=== PATIENT | female | born 1950 | race Caucasian/White ===

== ENCOUNTER → 2018-01-18 | Outpatient (CLI) | payer MEDICARE, OTHER ==
--- NOTE | 2018-01-18 17:11 | RAD ---
Examination: Ultrasound left lower extremity venous duplex HISTORY: History of left leg swelling COMPARISON: None available Technique: Grayscale, color Doppler 2-D, spectral waveforms analysis of the left lower extremity venous system were performed. FINDINGS: The visualized common femoral vein, superficial femoral vein, popliteal vein demonstrate normal compression and augmentation of flow. The visualized calf veins are patent. IMPRESSION: No evidence of deep venous thrombosis left lower extremity venous system. Electronically signed by: Mustapha Glover MD (01/18/2018 5:07 PM) [id number]
== END | disposition home or self-care (01) ==
LOC: US 15:27
PROVIDERS: ATTEND Family Medicine
DX: R60.0 Localized edema (principal)
CPT/HCPCS: 93971

== ENCOUNTER 2020-06-03 16:18 | Emergency (ER) | payer MEDICARE, OTHER ==
[~2020-06-03] VITALS: Ht 160 cm; Wt 109.3 kg
--- NOTE | 2020-06-03 16:38 | RAD ---
EXAM: CT Head without IV contrast INDICATION: Reason: slurred speech, numbness / Spl. Instructions: / History: TECHNIQUE: Multi-detector row CT images were obtained of the head without the use of IV contrast. All CT scans performed at this facility utilize dose optimization techniques as appropriate to the exam, including the following: Automated exposure control and adjustment of the mA and/or KV according to patient size (this includes techniques or standardized protocols for targeted exams where dose is indication/reason for exam). COMPARISON: None FINDINGS: BRAIN PARENCHYMA: No evidence of acute intraparenchymal hemorrhage or infarct. No abnormal parenchymal density or mass. VENTRICLES & EXTRA-AXIAL SPACES: Ventricles are within normal limits. Basilar cisterns are patent. No pathologic extra-axial fluid collection or mass. ORBITS: Orbital contents are unremarkable. SINUSES: Visualized paranasal sinuses and mastoid air cells are clear. OSSEOUS & SOFT TISSUES: Calvarium and skull base are intact. IMPRESSION: No acute intracranial pathology. FOR INTERNAL CODING PURPOSES Critical result: Findings discussed with NEGRA TORREZ at 06/03/2020 4:35 PM. RESULT CODE: (C) Electronically signed by: Zeus Dewey MD (06/03/2020 4:35 PM) [id number]
--- NOTE | 2020-06-03 17:07 | RAD ---
Examination: PORTABLE CHEST 1V History: Reason: weakness, code stroke / Spl. Instructions: / History: Comparison/Correlation: None Findings: Portable frontal view of the chest was obtained. Heart size and pulmonary vasculature are normal. No infiltrate involving the left lung. At the right midlung region, there is subtle opacity which may represent atelectasis subjacent to the minor fissure. No dense consolidation is evident. No pleural effusion or pneumothorax. Bony structures are grossly unremarkable. Impression: Subtle opacity right midlung probably representing atelectasis. Interval follow-up 2 view chest x-ray exam to assess resolution recommended. Electronically signed by: Tay David MD (06/03/2020 5:04 PM) [facility]
[2020-06-03 17:10] LABS: BASO # 0.1 x10^3/uL (0.0-0.2); BASO % 1 % (0-3); EOS # 0.2 x10^3/uL (0.0-0.7); EOS % 2 % (0-3); HEMATOCRIT 37.7 % (36.0-47.0); HEMOGLOBIN 12.2 g/dL (12.0-15.5); LYMPH # 2.2 x10^3/uL (1.0-4.8); LYMPH % 19 % (24-48); MEAN CORPUSCULAR HEMOGLOBIN 28 pg (25-35); MEAN CORPUSCULAR HGB CONC 32 g/dL (31-37); MEAN CORPUSCULAR VOLUME 85 fL (79-100); MONO % 9 % (0-9); NEUT # 7.8 x10^3uL (1.8-7.7); NEUT % 69 % (31-73); PLATELET COUNT 260 x10^3/uL (140-400); RED BLOOD COUNT 4.43 x10^6/uL (3.50-5.40); RED CELL DISTRIBUTION WIDTH 15.9 % (11.5-14.5); WHITE BLOOD COUNT 11.4 x10^3/uL (4.0-11.0)
--- NOTE | 2020-06-03 17:11 | PHYS DOC ---
Past History Past Medical History: Diabetes, High Cholesterol, Hypertension, Sciatica Additional Past Medical Histor: SVT (NEGRA TORREZ DO) Past Surgical History: Hysterectomy, Knee Replacement, Oophorectomy Additional Past Surgical Histo: Lumbar spine (NEGRA TORREZ DO) Smoking: Quit Greater Than 1 Year Alcohol Use: Occasionally Drug Use: None (NEGRA TORREZ DO) General Adult EDM: Chief Complaint: NEURO SYMPTOMS/DEFICITS HPI: HPI: Patient is a 69-year-old female with a history of hypertension, diabetes, high cholesterol, presents to the ED per EMS as CODE STROKE with slurred speech which was noted 30 minutes prior to arrival while on the phone with her daughter. Last known well was 2100 last night when she had spoken to another family member. EMS reports symptoms have since resolved. Patient states that she feels well without any pain. Patient has a history of right upper and lower extremity weakness and spasms that started after she had a back surgery 1 year ago. Denies any chest pain, shortness of breath, abdominal pain, or dizziness. (NEGRA TORREZ DO) Review of Systems: Review of Systems: Constitutional: Denies fever or chills Eyes: Denies redness or eye pain HENT: Denies nasal congestion or sore throat Respiratory: Denies cough or shortness of breath Cardiovascular: Denies chest pain or palpitations GI: Denies abdominal pain, nausea, or vomiting : Denies dysuria or hematuria Musculoskeletal: Denies back pain or joint pain Integument: Denies rash or skin lesions Neurologic: Reports slurred speech but has since resolved. Reports chronic right arm and leg spasms. Denies headache Complete systems were reviewed and found to be within normal limits, except as documented in this note. (NEGRA TORREZ DO) Allergies: Allergies: Allergies Coded Allergies Type Severity Reaction Last Updated Verified Penicillins Allergy Unknown 06/03/20 Yes Sulfa (Sulfonamide Antibiotics) Allergy Unknown 06/03/20 Yes (NEGRA TORREZ DO) Physical Exam: PE: Constitutional: Well developed, well nourished, no acute distress, non-toxic appearance HENT: Normocephalic, atraumatic Eyes: PERRL, EOMI, conjunctiva normal, no discharge Neck: Normal range of motion, no tenderness, supple Lungs & Thorax: No respiratory distress, equal chest rise and fall Abdomen: Soft, no tenderness Skin: Warm, dry, no erythema, no rash Back: No tenderness, no CVA tenderness Extremities: No tenderness, ROM intact, no edema Neurologic: Alert and oriented X 3, mild expressive aphasia noted, normal motor function, normal sensory function, no focal deficits noted, Cranial nerves II through XII intact, no UE or LE drift, mild right lower extremity weakness +4/5 Psychologic: Affect normal, judgment normal (NEGRA TORREZ DO) Current Patient Data: Vital Signs: Vital Signs Date Time Temp Pulse Resp B/P (MAP) Pulse Ox O2 Delivery O2 Flow Rate FiO2 06/03/20 17:00 70 20 148/73 (98) 96 Room Air (NEGRA TORREZ DO) EKG: EKG: EKG @ 1628, sinus rhythm at 64 BP with PACs, QRS 90 ms, QTc 446, no ST elevation (NEGRA TORREZ DO) Radiology/Procedures: Radiology/Procedures: PROCEDURE: CT CODE STROKE HEAD WO EXAM: CT Head without IV contrast INDICATION: Reason: slurred speech, numbness / Spl. Instructions: / History: TECHNIQUE: Multi-detector row CT images were obtained of the head without the use of IV contrast. All CT scans performed at this facility utilize dose optimization techniques as appropriate to the exam, including the following: Automated exposure control and adjustment of the mA and/or KV according to patient size (this includes techniques or standardized protocols for targeted exams where dose is indication/reason for exam). COMPARISON: None FINDINGS: BRAIN PARENCHYMA: No evidence of acute intraparenchymal hemorrhage or infarct. No abnormal parenchymal density or mass. VENTRICLES & EXTRA-AXIAL SPACES: Ventricles are within normal limits. Basilar cisterns are patent. No pathologic extra-axial fluid collection or mass. ORBITS: Orbital contents are unremarkable. SINUSES: Visualized paranasal sinuses and mastoid air cells are clear. OSSEOUS & SOFT TISSUES: Calvarium and skull base are intact. IMPRESSION: No acute intracranial pathology. FOR INTERNAL CODING PURPOSES Critical result: Findings discussed with NEGRA TORREZ at 06/03/2020 4:35 PM. RESULT CODE: (C) Electronically signed by: Zeus Dewey MD (06/03/2020 4:35 PM) [id number] PROCEDURE: PORTABLE CHEST 1V History: Reason: weakness, code stroke / Spl. Instructions: / History: Comparison/Correlation: None Findings: Portable frontal view of the chest was obtained. Heart size and pulmonary vasculature are normal. No infiltrate involving the left lung. At the right midlung region, there is subtle opacity which may represent atelectasis subjacent to the minor fissure. No dense consolidation is evident. No pleural effusion or pneumothorax. Bony structures are grossly unremarkable. Impression: Subtle opacity right midlung probably representing atelectasis. Interval follow-up 2 view chest x-ray exam to assess resolution recommended. Electronically signed by: Tay David MD (06/03/2020 5:04 PM) [facility] (NEGRA TORREZ DO) Radiology/Procedures: T ANGIOGRAPHY HEAD AND NECK History:Reason: slurred speech, right arm weakness / Spl. Instructions: / History: Technique: After bolus of intravenous contrast, volumetric CT data acquisition was acquired of the head and neck. Multiplanar reconstruction images to include MIP and 3-D reconstruction images are submitted. Exposure: One or more of the following individualized dose reduction techniques were utilized for this examination: 1. Automated exposure control 2. Adjustment of the mA and/or kV according to patient size 3. Use of iterative reconstruction technique. Comparison: June 03, [address] Any determination of stenosis is based on NASCET criteria. Head CTA: ICA: Moderate bilateral siphon atheromatous plaque with moderate multifocal narrowing involving the cavernous and supraclinoid segments MCA: Mild narrowings of the right MCA branches. High-grade narrowing of the left M2 branch (series 7 image 258 and series 40715 image 51). CHAVEZ: Mild narrowing of the A2 and A3 segment branches. No occlusion. MACHINE BURRER: Moderate narrowing of the bilateral P2 segments. Basilar artery: No stenosis, occlusion or aneurysm. Distal vertebral arteries: Right distal vertebral artery atheromatous plaque with mild narrowing. Left maxillary sinus mucosal thickening with mucus retention cysts or polyps. CT angiogram neck: Aortic arch: Mild atheromatous plaque within the aortic arch and branch vessels. Common carotid arteries: No stenosis, occlusion or dissection. Internal carotid arteries: Moderate plaque within the bilateral carotid bifurcations, right greater than left. 60 percent narrowing of the right internal carotid artery origin. Less than 50 percent narrowing of the left internal carotid artery origin. External carotid arteries: Patent Vertebral arteries: Moderate narrowing of the left vertebral artery origin due to calcified plaque. The left vertebral artery is small throughout the course. Dominant right vertebral artery. Right middle lobe partial lobar atelectasis, incompletely evaluated. Coronary artery calcification. Soft tissues appear normal. Bones: No pathologic osseous lesions. Impression: 1. No arterial occlusion within the head and neck. 2. High-grade narrowing of left MCA M2 branch. 3. Additional multifocal intracranial moderate narrowings involving the internal carotid arteries and posterior cerebral arteries. 4. Moderate narrowing of the right proximal internal carotid artery. Additional atheromatous plaque within the neck. 5. Right middle lobe with partial lobar atelectasis incompletely imaged. (CHANTEL LONGORIA MD) Course & Med Decision Making: Course & Med Decision Making Pertinent Labs and Imaging studies reviewed. (See chart for details) Patient is a 69-year-old female who presents via EMS as CODE STROKE with slurred speech prior to arrival. Last know well at 2100 last night. Symptoms resolved on initial exam but during her stay in the ED she started slightly slurring her words. NIHSS 2 with right leg drift likely chronic. Initial Head CT was negative. Labs obtained and posted to chart. EKG stable. CXR with atelectasis. Given last known well and improvement of symptoms upon arrival patient not candidate for TPA. ASA given. CTA head/neck obtained and pending. Patient likely to require admission with neurology consultation. 1800- Sign out given to Dr. Longoria for further evaluation and final disposition. Discussed current findings and plan with patient, who acknowledges understanding and agreement. (NEGRA TORREZ DO) Course & Med Decision Making Discussed CTA head with radiology. High-grade stenosis of left M2. Recommends MRI, no acute stroke on CT. Discussed with patient transfer to [place], patient agreeable to plan. (CHANTEL LONGORIA MD) Dragon Disclaimer: Dragon Disclaimer: This electronic medical record was generated, in whole or in part, using a voice recognition dictation system. (NEGRA TORREZ DO) Departure Departure: Impression: Primary Impression: Slurred speech Referrals: CAMILA LINO DO (PCP) NIHSS - ED NIH Stroke Scale: NIH Stroke Scale Response (Comments) Value Level of Consciousness: 0 Alert/Responsive 0 LOC Questions: 0 Answers both correctly 0 LOC Commands: 0 Performs both tasks 0 Best Gaze: 0 Normal 0 Visual: 0 No visual loss 0 Facial Palsy: 0 Normal, symmetrical 0 Motor - Left Arm 0 No drift 0 Motor - Right Arm 0 No drift 0 Motor - Left Leg 0 No drift 0 Motor: Right Leg 1 Drift but can hold 1 Limb Ataxia: 0 Absent 0 Sensory: 0 No loss 0 Best Language: 1 Mild to mod aphasia 1 Dysathria: 0 Normal 0 Extinction and Inattention: 0 Normal 0 Total 2 TORREZNEGRA DO Jun 03, 2020 17:11 CHANTEL LONGORIA MD Jun 03, 2020 19:16
[2020-06-03 17:18] LABS: CALCIUM 10.1 mg/dL (8.5-10.1); CREATININE 1.2 mg/dL (0.6-1.0); GFR 44.4; POTASSIUM 4.1 mmol/L (3.5-5.1)
[2020-06-03 17:24] LABS: ALBUMIN 3.6 g/dL (3.4-5.0); ALBUMIN/GLOBULIN RATIO 0.8 (1.0-1.7); MAGNESIUM 2.1 mg/dL (1.8-2.4); TOTAL BILIRUBIN 0.3 mg/dL (0.2-1.0)
[2020-06-03] MEDS ORDERED: ASPIRIN 325 MG TABLET PO ONE (17:45)
[2020-06-03] MEDS ORDERED: IOHEXOL 350 MG/ML 100 ML VIAL. IV ONE (17:45)
--- NOTE | 2020-06-03 17:52 | EKG ---
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
--- NOTE | 2020-06-03 18:50 | RAD ---
CT ANGIOGRAPHY HEAD AND NECK History:Reason: slurred speech, right arm weakness / Spl. Instructions: / History: Technique: After bolus of intravenous contrast, volumetric CT data acquisition was acquired of the head and neck. Multiplanar reconstruction images to include MIP and 3-D reconstruction images are submitted. Exposure: One or more of the following individualized dose reduction techniques were utilized for this examination: 1. Automated exposure control 2. Adjustment of the mA and/or kV according to patient size 3. Use of iterative reconstruction technique. Comparison: June 03, [address] Any determination of stenosis is based on NASCET criteria. Head CTA: ICA: Moderate bilateral siphon atheromatous plaque with moderate multifocal narrowing involving the cavernous and supraclinoid segments MCA: Mild narrowings of the right MCA branches. High-grade narrowing of the left M2 branch (series 7 image 258 and series 62550 image 51). CHAVEZ: Mild narrowing of the A2 and A3 segment branches. No occlusion. FENCE MAKING MACHINE OPERATOR: Moderate narrowing of the bilateral P2 segments. Basilar artery: No stenosis, occlusion or aneurysm. Distal vertebral arteries: Right distal vertebral artery atheromatous plaque with mild narrowing. Left maxillary sinus mucosal thickening with mucus retention cysts or polyps. CT angiogram neck: Aortic arch: Mild atheromatous plaque within the aortic arch and branch vessels. Common carotid arteries: No stenosis, occlusion or dissection. Internal carotid arteries: Moderate plaque within the bilateral carotid bifurcations, right greater than left. 60 percent narrowing of the right internal carotid artery origin. Less than 50 percent narrowing of the left internal carotid artery origin. External carotid arteries: Patent Vertebral arteries: Moderate narrowing of the left vertebral artery origin due to calcified plaque. The left vertebral artery is small throughout the course. Dominant right vertebral artery. Right middle lobe partial lobar atelectasis, incompletely evaluated. Coronary artery calcification. Soft tissues appear normal. Bones: No pathologic osseous lesions. Impression: 1. No arterial occlusion within the head and neck. 2. High-grade narrowing of left MCA M2 branch. 3. Additional multifocal intracranial moderate narrowings involving the internal carotid arteries and posterior cerebral arteries. 4. Moderate narrowing of the right proximal internal carotid artery. Additional atheromatous plaque within the neck. 5. Right middle lobe with partial lobar atelectasis incompletely imaged. FOR INTERNAL CODING PURPOSES Critical result: Findings discussed with Dr. Sepulveda at 06/03/2020 6:47 PM. RESULT CODE: (C) Electronically signed by: Jaycob Mccarthy DO (06/03/2020 6:47 PM) [facility]
[2020-06-03 21:07] VITALS: BP 110/47
== END 2020-06-03 21:35 | disposition short-term general hospital (02) ==
LOC: ER 16:18
DX: R47.81 Slurred speech (principal); M62.831 Muscle spasm of calf; E11.9 Type 2 diabetes mellitus without complications; E78.00 Pure hypercholesterolemia, unspecified; I10 Essential (primary) hypertension; Z87.891 Personal history of nicotine dependence; Z88.0 Allergy status to penicillin; Z88.2 Allergy status to sulfonamides
CPT/HCPCS: 36415; 70450; 70496; 70498; 71045; 80053; 82550; 82947; 83735; 84484; 85025; 85610; 85730; 93005; 99285; Q9967

== ENCOUNTER 2021-02-23 10:53 | Emergency (ER) | payer MEDICARE, OTHER ==
[~2021-02-23] VITALS: Ht 160 cm; Wt 97.2 kg
--- NOTE | 2021-02-23 11:16 | PHYS DOC ---
Past History Past Medical History: Diabetes, High Cholesterol, Hypertension, Sciatica Additional Past Medical Histor: SVT Past Surgical History: Hysterectomy, Knee Replacement, Oophorectomy Additional Past Surgical Histo: Lumbar spine Smoking: Quit Greater Than 1 Year Alcohol Use: Occasionally Drug Use: None General Adult EDM: Chief Complaint: NEURO SYMPTOMS/DEFICITS HPI: HPI: 70-year-old female presents via EMS from home for altered mental status and decreased LOC. History primarily comes from EMS. They tell me that the patient's family has noticed she has been more sleepy and less able to be awake and aware since yesterday. Today seems much worse. She is not really answering the questions. When you ask the patient why she is here she does not know. She is not able to fully answer questions. She says, nope, yes, um. She did not tell me her full name when I asked her. Patient has a history of CVA with right-sided deficits. She is on multiple medications for blood pressure, cholesterol, and Plavix. She denies pain. Review of Systems: Review of Systems: Constitutional: Denies fever or chills Eyes: Denies change in visual acuity HENT: Denies nasal congestion or sore throat Respiratory: Denies cough or shortness of breath Cardiovascular: Denies chest pain or edema GI: Denies abdominal pain, nausea, vomiting, bloody stools or diarrhea : Denies dysuria Musculoskeletal: Denies back pain or joint pain Integument: Denies rash Neurologic: Altered mental status, decreased LOC Endocrine: Denies polyuria or polydipsia Lymphatic: Denies swollen glands Psychiatric: Denies depression or anxiety Allergies: Allergies: Allergies Coded Allergies Type Severity Reaction Last Updated Verified Penicillins Allergy Unknown 06/03/20 Yes Sulfa (Sulfonamide Antibiotics) Allergy Unknown 06/03/20 Yes Physical Exam: PE: Constitutional: Well developed, well nourished, no acute distress, morbidly obese. [] HENT: Normocephalic, atraumatic, bilateral external ears normal, oropharynx moist, no oral exudates, nose normal. [] Eyes: PERRLA, EOMI, conjunctiva normal, no discharge. [] Neck: Normal range of motion, no tenderness, supple, no stridor. [] Cardiovascular: Heart rate 54, regular rhythm, no murmur [] Lungs & Thorax: Bilateral breath sounds clear to auscultation [] Abdomen: Bowel sounds normal, soft, no tenderness, no masses, no pulsatile masses. [] Skin: Warm, dry, no erythema, no rash. [] Back: No tenderness, no CVA tenderness. [] Extremities: No tenderness, no cyanosis, no clubbing, ROM intact, no edema. [] Neurologic: Alert, opens eyes to commands. Expressive aphasia. Falls asleep quickly complicating the rest of the exam. [] Psychologic: Affect normal, judgement normal, mood normal. [] EKG: EKG: Sinus rhythm, rate 54, normal axis, no ST elevation or depression. [] Radiology/Procedures: Radiology/Procedures: [] Impressions: CT head without contrast dated 02/23/2021 11:44 AM Comparison: 06/03/2020 CLINICAL INDICATION: Altered mental status TECHNIQUE: Contiguous axial imaging of the head was performed from skull base to vertex. One or more of the following individualized dose reduction techniques were utilized for this examination: 1. Automated exposure control 2. Adjustment of the mA and/or kV according to patient size 3. Use of iterative reconstruction technique. FINDINGS: Ventricles and sulci are mildly prominent for age. No midline shift or mass effect. There is focal encephalomalacia in the left temporal parietal region consistent with remote cortical infarct, new from prior study. Mild patchy low density in the deep/subcortical periventricular white matter. No hemorrhage or extra-axial collection. Posterior fossa and brainstem unremarkable. Visualized paranasal sinuses and mastoid air cells are clear. No apparent calvarial abnormality. IMPRESSION: 1. No evidence of acute intracranial hemorrhage or mass. 2. Mild to moderate chronic small vessel ischemic changes and atrophy. There is a remote cortical infarct of the left temporal parietal region. Electronically signed by: Navin Hebert MD (02/23/2021 11:47 AM) [id number] DICTATED AND SIGNED BY: NAVIN HEBERT MD DATE: 02/23/21 1144 CC: ELLE DE JESUS DO; DELLA JARRETT MD ~MTH0 0 XR CHEST 1V History: Reason: AMS / Spl. Instructions: / History: Comparison: June 03, 2020 Findings: Low lung volumes with linear bibasilar opacities. No pleural effusion. No pneumothorax. Unchanged heart size. Impression: 1. Low lung volumes with linear bibasilar opacities, most likely atelectasis. Electronically signed by: Jaycob Mccarthy DO (02/23/2021 12:00 PM) [id number] DICTATED AND SIGNED BY: JAYCOB MCCARTHY DO DATE: 02/23/21 1200 CC: ELLE DE JESUS DO; DELLA JARRETT MD ~MTH0 0 Heart Score: C/O Chest Pain: N/A Risk Factors: Risk Factors: DM, Current or recent (<one month) smoker, HTN, HLP, family history of CAD, obesity. Risk Scores: Score 0 - 3: 2.5% MACE over next 6 weeks - Discharge Home Score 4 - 6: 20.3% MACE over next 6 weeks - Admit for Clinical Observation Score 7 - 10: 72.7% MACE over next 6 weeks - Early Invasive Strategies Course & Med Decision Making: Course & Med Decision Making Pertinent Labs and Imaging studies reviewed. (See chart for details) The patient is able to open her eyes to commands, but only gives 1 word answers to my questions. Her head CT is negative for acute findings. CTA of the head and neck shows high-grade narrowing. See official read for more details. Ayleen cam's urinalysis is negative for infection. Her labs are essentially unremarkable. Her glucose is normal. Her chest x-ray is negative for acute findings. Her urine drug screen is negative. The patient continues to be very sleepy and give short answers. I have discussed with family and they would prefer she be transferred to for admission. I believe this is reasonable. I spoke with the transfer center and her transfer is pending. Dr. Delgado at has accepted the patient for transfer and admission. She will go by ambulance. [] Dragon Disclaimer: Dragbatsheva Disclaimer: This electronic medical record was generated, in whole or in part, using a voice recognition dictation system. Departure Departure: Impression: Primary Impression: Altered mental status Qualified Codes: R41.0 - Disorientation, unspecified Disposition: 02 SHORT TERM [facility]OSPITAL Condition: GUARDED Referrals: DELLA JARRETT MD (PCP) ELLE DE JESUS DO Feb 23, 2021 11:16
[2021-02-23] MEDS ORDERED: IOHEXOL 350 MG/ML 100 ML VIAL. IV ONE (11:45)
--- NOTE | 2021-02-23 11:49 | RAD ---
CT head without contrast dated 02/23/2021 11:44 AM Comparison: 06/03/2020 CLINICAL INDICATION: Altered mental status TECHNIQUE: Contiguous axial imaging of the head was performed from skull base to vertex. One or more of the following individualized dose reduction techniques were utilized for this examinat ion: 1. Automated exposure control 2. Adjustment of the mA and/or kV according to patient size 3. Use of iterative reconstruction technique. FINDINGS: Ventricles and sulci are mildly prominent for age. No midline shift or mass effect. There is focal en cephalomalacia in the left temporal parietal region consistent with remote cortical infarct, new from prior study. Mild patchy low density in the deep/subcortical periventricular white matter. No hemorr galo or extra-axial collection. Posterior fossa and brainstem unremarkable. Visualized paranasal sinuses and mastoid air cells are clear. No apparent calvarial abnormality. IMPRESSION: 1. No evidence of acute intracranial hemorrhage or mass. 2. Mild to moderate chronic small vessel ischemic changes and atrophy. There is a remote cortical inf arct of the left temporal parietal region. Electronically signed by: Navin Hebert MD (02/23/2021 11:47 AM) [id number]
--- NOTE | 2021-02-23 12:03 | RAD ---
XR CHEST 1V History: Reason: AMS / Spl. Instructions: / History: Comparison: June 03, 2020 Findings: Low lung volumes with linear bibasilar opacities. No pleural effusion. No pneumothorax. Unchanged hea rt size. Impression: 1. Low lung volumes with linear bibasilar opacities, most likely atelectasis. Electronically signed by: Jaycob Mccarthy DO (02/23/2021 12:00 PM) [id number]
[2021-02-23 12:42] LABS: BASO # 0.1 x10^3/uL (0.0-0.2); BASO % 1 % (0-3); EOS # 0.1 x10^3/uL (0.0-0.7); EOS % 1 % (0-3); HEMATOCRIT 32.4 % (36.0-47.0); HEMOGLOBIN 10.4 g/dL (12.0-15.5); LYMPH # 1.2 x10^3/uL (1.0-4.8); LYMPH % 11 % (24-48); MEAN CORPUSCULAR HEMOGLOBIN 26 pg (25-35); MEAN CORPUSCULAR HGB CONC 32 g/dL (31-37); MEAN CORPUSCULAR VOLUME 81 fL (79-100); MONO # 0.6 x10^3/uL (0.0-1.1); MONO % 6 % (0-9); NEUT # 9.4 x10^3uL (1.8-7.7); NEUT % 82 % (31-73); PLATELET COUNT 214 x10^3/uL (140-400); RED BLOOD COUNT 4.03 x10^6/uL (3.50-5.40); RED CELL DISTRIBUTION WIDTH 18.1 % (11.5-14.5); WHITE BLOOD COUNT 11.4 x10^3/uL (4.0-11.0)
[2021-02-23 12:53] LABS: CALCIUM 9.7 mg/dL (8.5-10.1); CREATININE 1.5 mg/dL (0.6-1.0); GFR 34.2; POTASSIUM 4.3 mmol/L (3.5-5.1)
[2021-02-23 12:59] LABS: ALBUMIN 3.6 g/dL (3.4-5.0); ALBUMIN/GLOBULIN RATIO 0.9 (1.0-1.7); TOTAL BILIRUBIN 0.5 mg/dL (0.2-1.0); TOTAL PROTEIN 7.6 g/dL (6.4-8.2)
--- NOTE | 2021-02-23 13:20 | RAD ---
CTA HEAD AND NECK W/WO CONTRAST History:Reason: AMS / Spl. Instructions: / History: Technique: After bolus of intravenous contrast, volumetric CT data acquisition was acquired of the he ad and neck. Multiplanar reconstruction images to include MIP and 3-D reconstruction images are submi tted. Exposure: One or more of the following individualized dose reduction techniques were utilized for thi s examination: 1. Automated exposure control 2. Adjustment of the mA and/or kV according to patient size 3. Use of iterative reconstruction technique. Comparison: None Any determination of stenosis is based on NASCET criteria. Head CTA: ICA: Carotid siphon atheromatous plaque, right greater than left. Severe long segment narrowing of th e right paraclinoid and supraclinoid internal carotid artery. Right periophthalmic infundibulum. Meeta re narrowing of the left paraclinoid/supraclinoid segment. MCA: Severe focal narrowing of the left distal M1 segment (series 7 image 268). No occlusion. Additio nal severe narrowing of the left M2 branch (image 265). CHAVEZ: Multifocal mild to moderate narrowing of the bilateral anterior cerebral arteries. No occlusion. ARMED SECURITY OFFICER: Moderate focal narrowing of the right P2 segment (series 7 image 266). Basilar artery: No stenosis, occlusion or aneurysm. Irregularity of the basilar artery likely due to atheromatous disease. Distal vertebral arteries: Patent artifact from dental amalgam degrades evaluation of the posterior f johnathan and evaluation of the distal intracranial vertebral arteries. No definite occlusion. Moderate na rrowing of the right distal intracranial vertebral artery. Diminutive size of the left vertebral reddy ry. Patent superior sagittal, straight, transverse and sigmoid venous sinuses. Chronic left frontoparieta l infarct. CT angiogram neck: Aortic arch: Moderate femoral spike within the aortic arch. Common carotid arteries: No stenosis, occlusion or dissection. Internal carotid arteries: Moderate atheromatous plaque within the carotid bifurcation, right greater than left. Focal narrowing of the right proximal internal carotid artery (series 7 image 501) approx imately 65 percent stenosis. Less than 50 percent narrowing of the left proximal internal carotid art charly. External carotid arteries: Patent Vertebral arteries: Mild narrowing of the left vertebral artery origin due to calcified plaque. Domin ant right vertebral artery within the neck. Imaged lung apices are unremarkable. Soft tissues appear normal. Bones: No pathologic osseous lesions. Impression: CT angiogram head: 1. No intracranial arterial occlusion. 2. High-grade narrowing of the bilateral paraclinoid internal carotid arteries. 3. Severe focal narrowing of the left distal M1 segment and M2 branch. 4. Additional intracranial narrowings, as described. CT angiogram neck: 1. 65 percent narrowing of the right proximal internal carotid artery. 2. Less than 50 percent narrowing of the left proximal internal carotid artery. 3. Moderate atheromatous plaque. Electronically signed by: Jaycob Mccarthy DO (02/23/2021 1:18 PM) [id number]
[2021-02-23 14:08] LABS: BARBITURATES NEG (NEG); BENZODIAZEPINES NEG (NEG); CANNABINOIDS NEG (NEG); COCAINE NEG (NEG); METHADONE NEG (NEG); OPIATES NEG (NEG); PHENCYCLIDINE NEG (NEG)
[2021-02-23 14:14] LABS: BILIRUBIN,URINE NEG (NEG); CLARITY,URINE CLEAR; COLOR,URINE YELLOW; GLUCOSE,URINE NEG (NEG); UROBILINOGEN,URINE 0.2 mg/dL (0.2 mg/dL)
[2021-02-23 14:15] LABS: NITRITE,URINE NEG (NEG)
[2021-02-23 14:17] LABS: BACTERIA,URINE 0 /HPF (0-FEW); RBC,URINE OCC /HPF (0-2); SQUAMOUS EPITHELIAL CELL,UR OCC /LPF
[2021-02-23 14:25] LABS: AMPHETAMINE/METHAMPHETAMINE NEG (NEG)
[2021-02-23 16:57] VITALS: BP 192/73
--- NOTE | 2021-02-24 06:27 | EKG ---
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
== END 2021-02-23 17:12 | disposition short-term general hospital (02) ==
LOC: ER 10:53
DX: R41.82 Altered mental status, unspecified (principal); R55 Syncope and collapse; E11.9 Type 2 diabetes mellitus without complications; E78.00 Pure hypercholesterolemia, unspecified; I10 Essential (primary) hypertension; Z87.891 Personal history of nicotine dependence; Z88.0 Allergy status to penicillin; Z88.2 Allergy status to sulfonamides
CPT/HCPCS: 36415; 51702; 70450; 70496; 70498; 71045; 80053; 80307; 81001; 84484; 85025; 93005; 99285; Q9967

== ENCOUNTER 2021-03-04 06:23 | Inpatient (IN) | payer MEDICARE, OTHER ==
[~2021-03-04] VITALS: Ht 160 cm; Wt 95.6 kg
--- NOTE | 2021-03-04 06:54 | PHYS DOC ---
Past History Past Medical History: Diabetes, High Cholesterol, Hypertension, Sciatica Additional Past Medical Histor: SVT Past Surgical History: Hysterectomy, Knee Replacement, Oophorectomy Additional Past Surgical Histo: Lumbar spine Smoking: Quit Greater Than 1 Year Alcohol Use: None Drug Use: None Adult General Chief Complaint Chief Complaint: NAUSEA/VOMITING/[facility] HPI Patient is a 70-year-old female with a past medical history of CVA who presents to the emergency room after having an episode of vomiting at home. According to EMS they were called because she vomited and the family was concerned that maybe she was having a stroke. Patient does have chronic right-sided deficits. She is unable to provide any history at this time. Unknown last well-known time. No further history is available. Review of Systems Review of Systems Complete ROS is negative unless otherwise documented in HPI Allergies Allergies Allergies Coded Allergies Type Severity Reaction Last Updated Verified Penicillins Allergy Unknown 06/03/20 Yes Sulfa (Sulfonamide Antibiotics) Allergy Unknown 06/03/20 Yes Physical Exam Physical Exam General: Sleeping, NAD. Well Nourished, well hydrated. Cooperative HEENT: Atraumatic, EOMI, PERRL, airway patent, moist oral mucosa Neck: Supple, trachea midline Respiratory: CTA bilaterally, normal effort, no wheezing/crackles CV: RRR, no murmur, cap refill <2 GI: Soft, nondistended, nontender, no masses MSK: No obvious deformities Skin: Warm, dry, intact Neuro: Aphasia, right-sided weakness, moving left arm and leg without difficulty, does not follow commands, unable to assess cranial nerves EKG EKG Sinus rhythm, heart rate 64, QTc 452, ST depression in leads I, 2, aVL, V4 through V6. No ST elevation Radiology/Procedures Radiology/Procedures [] Heart Score C/O Chest Pain: N/A Risk Factors: Risk Factors: DM, Current or recent (<one month) smoker, HTN, HLP, family history of CAD, obesity. Risk Scores: Risk Factors: DM, Current or recent (<one month) smoker, HTN, HLP, family history of CAD, obesity. Course & Med Decision Making Course & Med Decision Making Pertinent Labs and Imaging studies reviewed. (See chart for details) Patient is a 70-year-old female with a history of CVA who presents to the [facility] with altered mental status. On exam, patient has chronic right-sided deficits, appears lethargic and confused. At this time it is unclear what is causing the patient's altered mental status, however they do not appear to be at their baseline. Differential includes infection, electrolyte imbalance, ACS, stroke, intracranial bleed, polypharmacy, dehydration, dementia, renal failure. Patient does not have hypo-or hyperthermia. No history was provided to suggest seizure with postictal state. Glucose is normal upon arrival. At arrival, patient is protecting their airway and does not need to be intubated. There are not any signs of trauma. To evaluate the patient's altered mental status, CBC, CMP, UA, troponin, EKG, CT head will be ordered. Patient does appear to be dehydrated. She remains altered. Will admit to the hospital for observation. Dragon Disclaimer Dragon Disclaimer This electronic medical record was generated, in whole or in part, using a voice recognition dictation system. Departure Departure: Impression: Primary Impression: Altered mental status Additional Impression: Dehydration Disposition: ADMITTED INPATIENT Condition: STABLE Referrals: DELLA JARRETT MD (PCP) Problem Qualifiers TI DUMONT MD Mar 04, 2021 06:54
[2021-03-04 07:02] LABS: CALCIUM 9.2 mg/dL (8.5-10.1); CREATININE 1.4 mg/dL (0.6-1.0); GFR 37.1; POTASSIUM 4.2 mmol/L (3.5-5.1)
--- NOTE | 2021-03-04 07:02 | EKG ---
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
[2021-03-04 07:14] LABS: ALBUMIN 3.6 g/dL (3.4-5.0); ALBUMIN/GLOBULIN RATIO 0.9 (1.0-1.7); TOTAL BILIRUBIN 0.5 mg/dL (0.2-1.0); TOTAL PROTEIN 7.5 g/dL (6.4-8.2)
[2021-03-04 07:18] LABS: BASO # 0.1 x10^3/uL (0.0-0.2); BASO % 1 % (0-3); EOS # 0.1 x10^3/uL (0.0-0.7); EOS % 1 % (0-3); HEMATOCRIT 32.9 % (36.0-47.0); HEMOGLOBIN 10.7 g/dL (12.0-15.5); LYMPH # 1.5 x10^3/uL (1.0-4.8); LYMPH % 12 % (24-48); MEAN CORPUSCULAR HEMOGLOBIN 26 pg (25-35); MEAN CORPUSCULAR HGB CONC 33 g/dL (31-37); MEAN CORPUSCULAR VOLUME 80 fL (79-100); MONO # 0.7 x10^3/uL (0.0-1.1); MONO % 6 % (0-9); NEUT % 81 % (31-73); PLATELET COUNT 263 x10^3/uL (140-400); RED BLOOD COUNT 4.12 x10^6/uL (3.50-5.40); RED CELL DISTRIBUTION WIDTH 17.9 % (11.5-14.5); WHITE BLOOD COUNT 12.4 x10^3/uL (4.0-11.0)
--- NOTE | 2021-03-04 07:44 | RAD ---
CT HEAD/BRAIN WO History: Altered mental status, vomiting. Comparison: CT head CTA 02/23/2021. Technique: Noncontrast CT imaging was performed of the head. Findings: No intracranial hemorrhage. No mass effect. No hydrocephalus. No acute territorial infarction. Redem onstrated left frontoparietal encephalomalacia. Imaged orbits are unremarkable. Imaged paranasal sinuses and mastoid air cells are clear. No acute ca lvarial fracture. Impression: 1. No acute intracranial abnormality. 2. Left frontoparietal encephalomalacia. ----- Exposure: One or more of the following individualized dose reduction techniques were utilized for thi s examination: 1. Automated exposure control 2. Adjustment of the mA and/or kV according to patient size 3. Use of iterative reconstruction technique. Electronically signed by: Dae Saab MD (03/04/2021 7:42 AM) [facility]
[2021-03-04] MEDS ORDERED: IV NORMAL SALINE 1,000ML 1,000 ML IV ONE (07:45)
[2021-03-04 07:50] LABS: BACTERIA,URINE 0 /HPF (0-FEW); BILIRUBIN,URINE NEG (NEG); CLARITY,URINE CLEAR; COLOR,URINE STRAW; GLUCOSE,URINE NEG (NEG); NITRITE,URINE NEG (NEG); RBC,URINE 0 /HPF (0-2); UROBILINOGEN,URINE 0.2 mg/dL (0.2 mg/dL); WBC,URINE 0 /HPF (0-4)
--- NOTE | 2021-03-04 07:57 | RAD ---
CT ABDOMEN+PELVIS WO History: Altered mental status, vomiting. Comparison: 10/04/2020 Technique: CT of the abdomen and pelvis without contrast. Findings: Lower chest: Mitral valve annular calcification. Coronary artery calcification. No pleural or pericar dial effusion. Minimal basilar atelectasis. General abdomen: No ascites. No free air. Liver : Normal in size and attenuation. No masses seen. Gallbladder/Biliary Tree: A few tiny stones in the gallbladder. No intrahepatic or extrahepatic bilia ry ductal dilatation. Pancreas: Normal. Spleen: Normal in size and attenuation. Adrenal glands: Circumscribed 4.5 cm x 3.3 cm left adrenal mass with a few internal calcifications ap pears not significantly changed. Kidneys: No hydronephrosis or hydroureter. Mildly prominent left extrarenal pelvis. Gastrointestinal: Small hiatal hernia. Unremarkable small bowel. Mild descending and sigmoid divertic ulosis. No evidence of diverticulitis. Lymph nodes: No lymphadenopathy. Vessels: Aorta iliac calcification without aneurysm. Pelvic Organs: Status post hysterectomy. No pelvic masses. The bladder is unremarkable. Soft tissues: Unremarkable. Bones: L4-L5 posterior spinal fixation. Impression: 1. No acute findings in the abdomen and pelvis. 2. Chronic findings including cholelithiasis, diverticulosis and small hiatal hernia. 3. Indeterminate circumscribed left adrenal mass measuring approximately 4.5 cm, not significantly c hanged from prior may represent adenoma, however dedicated renal MRI or CT could provide further river acterization. ------ Exposure: One or more of the following individualized dose reduction techniques were utilized for thi s examination: 1. Automated exposure control 2. Adjustment of the mA and/or kV according to patient size 3. Use of iterative reconstruction technique. Electronically signed by: Dae Saab MD (03/04/2021 7:54 AM) [facility]
[2021-03-04 09:07] LABS: BARBITURATES NEG (NEG); BENZODIAZEPINES NEG (NEG); CANNABINOIDS NEG (NEG); COCAINE NEG (NEG); METHADONE NEG (NEG); OPIATES NEG (NEG); PHENCYCLIDINE NEG (NEG)
[2021-03-04 09:11] LABS: BGAS PH 7.4 (7.35-7.45)
[2021-03-04 09:28] LABS: AMPHETAMINE/METHAMPHETAMINE NEG (NEG)
--- NOTE | 2021-03-04 10:53 | NUR ---
NURSING NOTE ADMIT PT ADMIT TO ROOM 107 [facility] FOR AMS DEHYDRATION. PT IS NOT ABLE TO STATE HER NAME OR SPEAK YES OR NO QUESTIONS. PT SON CALLED, PT SON STATES SHE IS NORMAL ALERT TO NAME AND DATE OF AT LEAST. BUT IS VERY SLOW TO RESPOND. STATES SHE HAS HAD A STROKE MAY 2020 AND ALSO ANOTHER STROKE 1 WEEK AGO. PT IS RIGHT SIDED PARALYSIS. PT SON STATES SHE IS ON INSULIN AND BLOOD THINNERS AND WILL CALL WHEN HE CAN WITH MED LIST. PT SON STATES SHE HAD NV SEP 2020. STATES DISCHARGE PLANNING TO RETURN HOME, PER PT SON, THEY HAVE PLENTY OF HELP AT HOME AND SHE DOES NOT WANT A ASSISTED. PT SON STATES PT IS FULL CODE BUT NO LIFE SUPPORT. PT REFUSES COVID VACCINE. PT TAKES MEDS WHOLE AND EATS MEALS WITH X1 ASSIST. PT HAS BRUISING ON BODY IN VARIOUS STAGING PT SON STATES IS FROM THE BLOOD THINNERS. JOSÉ MIGUEL RICARDO.
[2021-03-04 11:18] VITALS: BP 152/83
[2021-03-04] MEDS ORDERED: SIMV20TA18 PO (12:31)
[2021-03-04] MEDS ORDERED: PANT40TA6 PO (12:31)
[2021-03-04] MEDS ORDERED: BACL10TA PO ×2 (12:31→14:59)
[2021-03-04] MEDS ORDERED: ASPI-889 PO (12:31)
[2021-03-04] MEDS ORDERED: CLOP75TA PO (12:31)
[2021-03-04] MEDS ORDERED: LISI40TA6 PO (12:31)
[2021-03-04] MEDS ORDERED: METO-239 PO (12:31)
[2021-03-04] MEDS ORDERED: SERT-269 PO (12:31)
[2021-03-04] MEDS ORDERED: APIX2.5T PO (12:31)
[2021-03-04] MEDS ORDERED: INSU100V SQ (12:31)
[2021-03-04] MEDS ORDERED: TEMA7.5C PO (12:31)
[2021-03-04] MEDS ORDERED: INSU100I13 SQ (12:31)
[2021-03-04] MEDS ORDERED: TORS20TA2 PO (12:31)
[2021-03-04] MEDS ORDERED: NYST60PO TP (12:31)
[2021-03-04] MEDS ORDERED: MELA3TAB4 PO (12:31)
[2021-03-04 14:39] VITALS: BP 183/76
[2021-03-04] MEDS ORDERED: DOCU-109 PO (14:59)
[2021-03-04] MEDS ORDERED: VITAMIN D PO (14:59)
[2021-03-04] MEDS ORDERED: CETI10TA74 PO (14:59)
[2021-03-04] MEDS ORDERED: IV NORMAL SALINE 1,000ML 1,000 ML IV SCH (15:00)
--- NOTE | 2021-03-04 15:10 | NUR ---
NURSING NOTE CONSULT CONSULT PAGED [id number] DAVION VALDEZ Addendum: 03/04/21 at 1516 by DAVION VERMA RN RN DR BLANCO CALLED BACK, WILL SEE PT
[2021-03-04] MEDS ORDERED: BACLOFEN 10 MG TABLET PO PRN (15:15)
--- NOTE | 2021-03-04 15:17 | HP ---
ADMIT DATE: 03/04/2021 HISTORY OF PRESENT ILLNESS: The patient is a 70-year-old female patient, who was brought to the Emergency Room by Emergency Medical Service personnel with complaint of nausea and vomiting. According to the EMS, they were called because she vomited. The family was concerned that she may be having another stroke. She does have right-sided hemiplegia and also has aphasia. She was also somewhat slower to answer questions. The family decided to call EMS to bring her to the Emergency Room for further evaluation. There was no history of fall, no seizure disorder. She normally can feed herself, but otherwise she is dependent in 5/6 all activities of daily living. She was extensively investigated in the Emergency Room and has had lab work. Her white cell count was slightly elevated at 12,400. Her blood gasses were within normal range. Her chemistry showed slightly dehydrated with BUN of 48, creatinine 1.4. Urinalysis was unremarkable and her toxic screen was essentially negative. The patient was admitted with altered mental status and dehydration. We will start her on IV fluid. We will also consult the Neurologist. She did have a CT scan of the head, which showed no acute intracranial abnormalities. She has frontoparietal encephalomalacia. The CT scan of the abdomen and pelvis without contrast showed no acute finding in the abdomen and pelvis. Chronic findings including cholelithiasis, diverticulosis, small hiatal hernia. She also has indeterminate circumscribed left adrenal mass, measuring approximately 4.5 cm, not significantly changed from prior, may represent adenoma; however, dedicated renal MRI or CT scan provide further characterization. She was started on IV fluid and was admitted. We will also get the medication list from her son and get physical and occupational therapy as well as neurologist to see her. PAST MEDICAL HISTORY: Significant for type 2 diabetes mellitus, hypertension, hyperlipidemia, age-related macular degeneration, osteoarthritis. 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 PAST SURGICAL HISTORY: Significant for bilateral cataract extraction, tonsillectomy, total abdominal hysterectomy, bilateral salpingo-oophorectomy, bilateral total knee arthroplasty. She underwent esophagogastroduodenoscopy and colonoscopy and most recently, she had, had some surgery on her back in 03/2020 at [facility]. ALLERGIES: SHE IS ALLERGIC TO PENICILLIN AND SULFA DRUGS. MEDICATIONS: She is currently on the following medication: She is on baclofen 10 mg as needed, apixaban 2.5 mg twice a day, Plavix 75 mg once a day, simvastatin 20 mg at bedtime, metoprolol succinate 25 mg once a day, lisinopril 40 mg once a day, aspirin enteric coated 81 mg once a day, sertraline 100 mg once a day. She is on temazepam 7.5 mg at bedtime as needed, torsemide 20 mg twice a day and Protonix 40 mg once a day. She is on Humalog insulin 20 units before meals, nystatin powder applied topically twice a day and Lantus insulin 40 units at bedtime and melatonin 3 mg at bedtime. REVIEW OF SYSTEMS: As per history of present illness. PHYSICAL EXAMINATION: GENERAL: On arrival to the emergency room, she looked well and was clearly in no apparent respiratory distress. She was pale. No jaundice, cyanosis or thyromegaly. No jugular venous distention. No limb edema. VITAL SIGNS: Her heart rate was 72, blood pressure 143/59, temperature 97.8, respiratory rate was 19 and oxygen saturation was 91% on room air. HEAD, EYES, EARS, NOSE, AND THROAT: Normocephalic, atraumatic. NECK: Supple. HEART: Normal first and second heart sounds. No gallop, rub or murmur. CHEST: Clear to auscultation. No crepitation or rhonchi. ABDOMEN: Distended, soft, nontender. NEUROLOGIC: She was sleepy, but arousable. She opens eyes, tracks and responds appropriately. She does have right-sided hemiplegia. LABORATORY DATA: Showed white cell count 12,400, hemoglobin 11, hematocrit 33, MCV 80 and platelet count 263,000. Her chemistry showed a serum sodium 143, potassium 4.2, chloride 103, bicarbonate 27, anion gap of 13, BUN 48, creatinine 1.4. Estimated GFR was 37 mL per minute. Her glucose was 93, calcium was 9.2. Total bilirubin, AST, ALT normal. Alkaline phosphatase slightly elevated. Beta natriuretic peptide was 320. Total protein 7.5, albumin was 3.6. Her urinalysis was unremarkable and toxic screen was essentially negative. ASSESSMENT: This is a 70-year-old female patient, who was admitted with altered mental status and was found to be dehydrated. She apparently is known to have a left middle cerebral artery territory infarct. She has had other episodes of infarction around the same area. She is normally wheelchair bound. She requires assistance and 5/6 activities of daily living. She is able to feed herself. My plan is to continue with rehydration. I will hold her blood pressure medication and Lasix and continue with IV fluid. We will consult physical and occupational therapy as well as speech therapy and neurologist and decide the further management accordingly. SEVEN DR: Alea TID: [id number]
[2021-03-04] MEDS: IV NORMAL SALINE 1,000ML 1,000 ML IV SCH (15:27)
[2021-03-04] MEDS ORDERED: INSULIN GLARGINE SYRINGE. SQ PRN (15:30)
--- NOTE | 2021-03-04 15:35 | NUR ---
NURSING NOTE MEDICATIONS VERIFIED WITH TAMMI RICARDO RN.
[2021-03-04] MEDS: INSULIN LISPRO 300 UNITS/3 ML VIAL. SQ SCH (17:54)
--- NOTE | 2021-03-04 18:22 | NUR ---
Nursing Note Pt seen by Dr. Sutton. Pt restarted on some of her home meds and started on fluids. Pt son visited today. Pt resting in the bed.
[2021-03-04 19:50] VITALS: BP 138/48
[2021-03-04] MEDS ORDERED: INSULIN GLARGINE SYRINGE. SQ SCH (21:00)
[2021-03-04] MEDS ORDERED: BACLOFEN 20 MG TABLET PO SCH (21:00)
[2021-03-04] MEDS ORDERED: CHOLECALCIFEROL (VITAMIN D3) 1,000 UNIT TABLET PO SCH (21:00)
[2021-03-04] MEDS ORDERED: SIMVASTATIN 20 MG TABLET PO SCH (21:00)
[2021-03-04] MEDS ORDERED: MELATONIN 3 MG TABLET PO SCH (21:00)
[2021-03-04] MEDS: DOCUSATE SODIUM 100 MG CAPSULE PO SCH (22:17)
[2021-03-04] MEDS: APIXABAN 2.5 MG TABLET PO SCH (22:17)
[2021-03-04] MEDS: NYSTATIN TOPICAL POWDER 15GM BOTTLE. TP SCH (22:17)
[2021-03-04] MEDS ORDERED: OLANZapine 5 MG TABLET PO PRN (22:45)
[2021-03-04] MEDS ORDERED: OLANZapine IM 10 MG VIAL. IM PRN ×2 (22:45)
[2021-03-04] MEDS ORDERED: OLANZapine 2.5 MG TABLET PO PRN (22:45)
[2021-03-04 23:00] VITALS: BP 134/64
--- NOTE | 2021-03-05 00:01 | NUR ---
Patient was agitated and trying to get out of bed. Multiple attempts to re-direct were unsuccessful. Dr Sutton was notified and orders for Olanzapine PO and IM prn were given to be administered based on need and whether patient will accept to swallow or not. Orers were entered and confirmed and a dose was administered to calm patient down. Pastient is now laying in bed, breathing normally with eyes closed.
--- NOTE | 2021-03-05 02:50 | CONS ---
DATE OF CONSULTATION: 03/04/2021 NEURO CONSULTATION REFERRING PHYSICIAN: Dr. Sutton. REASON FOR CONSULTATION: Acute mental status, rule out stroke versus systemic infections. HISTORY OF PRESENT ILLNESS: This is a 70-year-old right-handed male, was admitted through Emergency Room after she presented with acute onset of nausea, vomiting. The patient has a history of stroke resulted in a dense right hemiparesis and aphasia due to left MCA infarct resulted in aphasia and difficulty to communicate. There has been no history of recent head injuries or fall. On arrival to the Emergency Room, the patient was found to be dehydrated and initial nonenhanced head CT scan revealed no evidence of acute intracranial process. Initial abdomen CT also revealed chronic cholelithiasis and diverticulosis with small hiatal hernia. Left adrenal mass were also noted. PAST MEDICAL HISTORY: Significant for diabetes mellitus type 2, hypertension, hyperlipidemia, osteoarthritis, macular degeneration and left middle cerebral artery infarct resulted in aphasia and dense right hemiparesis, GERD, depression. PAST SURGICAL HISTORY: Positive for bilateral cataract removal, tonsillectomy, abdominal hysterectomy, bilateral total knee replacement, status post lumbosacral spine surgery in 03/2020. SOCIAL HISTORY: Not obtainable. FAMILY HISTORY: Not obtainable. CURRENT MEDICATIONS: Includes Baclofen, Plavix, apixaban, simvastatin, metoprolol, lisinopril, aspirin, sertraline, Protonix and insulin. ALLERGIES: PENICILLIN AND SULFA DRUGS. PHYSICAL EXAMINATION: GENERAL: Obese female in no acute distress. She weighs 95.6 kilos. VITAL SIGNS: Blood pressure 183/76, respiratory rate 20, pulse is 70 and regular, oxygen saturation is 92% on 2 liters via nasal cannula and temperature 98.1. HEENT: Normocephalic and atraumatic, otherwise unremarkable. NECK: Supple. Negative for carotid bruit, lymphadenopathy or thyromegaly. LUNGS: Clear to A and P. CARDIOVASCULAR: Regular rhythm. Normal S1 and S2. ABDOMEN: Soft. Bowel sounds positive. EXTREMITIES: Negative for cyanosis or pitting edema. NEUROLOGIC: Mental status: The patient is awake, but aphasic. Follows 1-step commands. Further evaluation of her mental status is limited at this time. Motor examination: No focal muscle bulk wasting. The patient had dense right hemiparesis, including the right face, arm and leg. Sensory examination revealed diminished pinprick and light touch senses over the right upper and lower extremities. Deep tendon reflexes were symmetric and hypoactive with positive Babinski on the right side. Gait not tested. LABORATORY DATA: CBC revealed white blood cells of 12.4000, hemoglobin 10.7, hematocrit 32.9, platelet count 263,000. Chemistry reveals a sodium of 143, potassium 4.2, chloride 103, CO2 27, BUN 48, creatinine 1.4, glucose 193, calcium 9.2. Liver enzymes are normal. Alkaline phosphatase is elevated with normal troponin level and high NTP. Urinalysis negative for urinary tract infections. Urine drug screen is negative as well. IMPRESSION: 1. Acute encephalopathy etiology is uncertain 2. Right dense hemiparesis secondary to previous left middle cerebral artery infarct resulted in aphasia. 3. Multiple medical problems include hypertension, hyperlipidemia, diabetes mellitus and macular degeneration. RECOMMENDATIONS: 1. continue with current management 2. Physical therapy evaluation along with speech therapy as tolerated KATI/MYCHAL DR: KATI/ayesha TID: [id number] MTDD
[2021-03-05] MEDS: IV NORMAL SALINE 1,000ML 1,000 ML IV SCH ×2 (04:35→17:20)
[2021-03-05 07:04] VITALS: BP 108/51
[2021-03-05 07:16] LABS: HEMATOCRIT 30.6 % (36.0-47.0); HEMOGLOBIN 9.9 g/dL (12.0-15.5); RED BLOOD COUNT 3.77 x10^6/uL (3.50-5.40); RED CELL DISTRIBUTION WIDTH 17.8 % (11.5-14.5); WHITE BLOOD COUNT 12.7 x10^3/uL (4.0-11.0)
[2021-03-05 07:35] LABS: ALBUMIN 3.1 g/dL (3.4-5.0); ALBUMIN/GLOBULIN RATIO 0.8 (1.0-1.7); CALCIUM 9.2 mg/dL (8.5-10.1); CREATININE 1.2 mg/dL (0.6-1.0); GFR 44.3; POTASSIUM 3.7 mmol/L (3.5-5.1); TOTAL BILIRUBIN 0.5 mg/dL (0.2-1.0)
[2021-03-05] MEDS: INSULIN LISPRO 300 UNITS/3 ML VIAL. SQ SCH ×3 (08:00→17:00)
[2021-03-05] MEDS ORDERED: PANTOPRAZOLE 40 MG TABLET. PO SCH (09:00)
[2021-03-05] MEDS ORDERED: SERTRALINE 100 MG TABLET. PO SCH (09:00)
[2021-03-05] MEDS ORDERED: ASPIRIN ENTERIC COATED 81 MG TABLET.DR. PO SCH (09:00)
[2021-03-05] MEDS ORDERED: METOPROLOL SUCC 24HR ER 25 MG TAB.ER.24H. PO SCH (09:00)
[2021-03-05] MEDS ORDERED: CETIRIZINE HCL 10 MG TABLET PO SCH (09:00)
[2021-03-05] MEDS ORDERED: CLOPIDOGREL BISULFATE 75 MG TABLET PO SCH (09:00)
[2021-03-05 10:16] VITALS: BP 160/74
[2021-03-05 11:11] VITALS: BP 160/74
[2021-03-05] MEDS: APIXABAN 2.5 MG TABLET PO SCH (11:11)
[2021-03-05] MEDS: DOCUSATE SODIUM 100 MG CAPSULE PO SCH (11:11)
[2021-03-05] MEDS: NYSTATIN TOPICAL POWDER 15GM BOTTLE. TP SCH ×2 (11:12→14:09)
--- NOTE | 2021-03-05 16:34 | NUR ---
Patient Concern This nurse called at times listed below patient family in order to assure that family/caregiver is at home to received patient and no answer received, voicemail left. Nash Barreto (son) called this morning at apx 10am for plan of care update and time of discharge. This nurse voiced to patients son that I would call and notify prior to patient to be transferred back to home. Times: 1700, 1715, 1730, 1630 Addendum: 03/05/21 at 1655 by MITRA ESTRELLA RN [id number]:This nurse was able to reach Wyatt Barreto whom stated "I will text my family and see who replies then I will call you back to let you know who will be home and when".
--- NOTE | 2021-03-05 18:48 | NUR ---
Discharge Note Patient picked up per EMS after receiving call from Wyatt Barreto stating that he was able to get a hole of his brother who is there at the house. Patient send with discharge packet for family whom presume care for her in home. No acute concerns. All questions answered in full.
--- NOTE | 2021-03-05 22:24 | DS ---
DATE OF DISCHARGE: 03/05/2021 HOSPITAL COURSE: The patient is a 70-year-old female patient who was admitted with altered mental status and also was found to be dehydrated. She was started on IV fluid and was seen in consultation by the neurologist who basically felt that the patient's acute encephalopathy has uncertain etiology, although she seemed to be dehydrated. She continues to have dense right-sided hemiparesis secondary to previous left middle cerebral artery territory infarct with resultant aphasia and we did start her on IV fluid and her BUN and creatinine has improved. When I saw her today, she is definitely more awake, alert, continued to have aphasia and difficulty finding words. PHYSICAL EXAMINATION: GENERAL: When I examined her; however, she looked well, was slightly pale. No jaundice, no cyanosis, no lymphadenopathy, no thyromegaly, no jugular venous distention. No lower limb edema. VITAL SIGNS: Her heart rate was 64, blood pressure is 160/74, temperature was 97.6, respiratory rate 20, and oxygen saturation was 97%. HEAD, EYES, EARS, NOSE AND THROAT: Normocephalic, atraumatic. NECK: Supple. HEART: Showed normal first and second heart sounds, no gallop or murmur. CHEST: Clear to auscultation, no crepitation or rhonchi. ABDOMEN: Distended, soft, nontender. NEUROLOGIC: She is awake, alert. She has expressive aphasia and dense right-sided hemiplegia. Her intake was 1225, output was 1500. LABORATORY DATA: This morning showed a white cell count 12,700, hemoglobin 9.9, hematocrit 30.6, MCV 81 and platelet count 251,000. Her serum sodium was 149, potassium 3.7, chloride 112, bicarbonate 27, anion gap of 10, BUN 33, creatinine 1.2. Estimated GFR was 44 mL per minute. Her glucose was 73, calcium was 9.2. Total bilirubin, AST, ALT, alkaline phosphatase were normal. Total protein 7, albumin was 3.1. Urinalysis was unremarkable and toxic screen was negative. PLAN: The patient will be discharged back to home with private care on all her home medication. ABNER DR: Alea TID: [id number]
--- NOTE | 2021-03-05 23:34 | PN ---
PROGRESS NOTE SUBJECTIVE: The patient is aphasic and not able to communicate. OBJECTIVE: GENERAL: Well-developed, well-nourished female in no acute distress. VITAL SIGNS: Blood pressure 108/51, respiratory rate 18, pulse is 62 and regular, oxygen saturation is 95% on room air, temperature 97.2. HEENT: Normocephalic, atraumatic, otherwise unremarkable. NECK: Supple. Negative for carotid bruit, lymphadenopathy, or thyromegaly. LUNGS: Clear to A and P. CARDIOVASCULAR: Regular rhythm. Normal S1, S2. EXTREMITIES: Negative for cyanosis or clubbing. NEUROLOGIC: Mental Status: The patient is aphasic due to previous stroke. She is able to follow one-step commands. Cranial nerves reveal right central facial asymmetry due to previous stroke. Motor examination revealed a dense right hemiparesis. Sensory examination revealed a diminished pinprick and light touch senses over the right upper and lower extremities. Deep tendon reflexes are symmetric and hypoactive with absent Achilles responses. Babinski is positive on the right side. LABORATORY DATA: CBC revealed blood cells of 12.7 thousand, hemoglobin 9.9, hematocrit 30.6, platelet count 251,000. Chemistry revealed sodium of 149, potassium 3.7, chloride 112, CO2 27, BUN 33, creatinine 1.2, glucose is 113, and calcium 9.2. IMPRESSION: 1. Acute encephalopathy, of uncertain etiology, probably due to underlying dehydration and renal insufficiency. 2. Status post dense right hemiparesis with aphasia due to a previous left frontoparietal infarct in MCA distribution. RECOMMENDATIONS: Continue with current management and care initiated by Dr. Sutton along with speech and physical therapy as tolerated. KATI/LOUANN DR: KATI/ayesha TID: [id number]
== END 2021-03-05 18:00 | disposition home or self-care (01) | DRG 641 ==
LOC: ER 06:23 → 1 SOUTH 08:55
PROVIDERS: ADMIT Internal Medicine; ATTEND Internal Medicine
DX: E86.0 Dehydration (principal); G93.40 Encephalopathy, unspecified; I69.351 Hemiplegia and hemiparesis following cerebral infarction affecting right dominant side; E11.9 Type 2 diabetes mellitus without complications; E27.9 Disorder of adrenal gland, unspecified; E78.00 Pure hypercholesterolemia, unspecified; E78.5 Hyperlipidemia, unspecified; G93.89 Other specified disorders of brain; H35.30 Unspecified macular degeneration; I10 Essential (primary) hypertension; I69.320 Aphasia following cerebral infarction; K44.9 Diaphragmatic hernia without obstruction or gangrene; K57.90 Diverticulosis of intestine, part unspecified, without perforation or abscess without bleeding; K80.20 Calculus of gallbladder without cholecystitis without obstruction; N28.9 Disorder of kidney and ureter, unspecified; Z87.891 Personal history of nicotine dependence; Z90.710 Acquired absence of both cervix and uterus; Z96.653 Presence of artificial knee joint, bilateral; Z98.41 Cataract extraction status, right eye; Z98.42 Cataract extraction status, left eye; Z99.3 Dependence on wheelchair; F32.9 Major depressive disorder, single episode, unspecified; K21.9 Gastro-esophageal reflux disease without esophagitis; M19.90 Unspecified osteoarthritis, unspecified site; Z88.0 Allergy status to penicillin; Z88.2 Allergy status to sulfonamides
CPT/HCPCS: 36415; 70450; 74176; 80053; 80307; 81001; 82803; 82947; 83690; 83880; 84484; 85025; 85027; 93005; 96360; J1815; J3490; P9612; 99285-25; J7030

== ENCOUNTER 2021-03-13 15:42 | Inpatient (IN) | payer MEDICARE, OTHER ==
[~2021-03-13] VITALS: Ht 160 cm; Wt 97.0 kg
[~2021-03-13 15:42] MED LIST: APIX2.5T PO; ASPI-889 PO; BACL10TA PO; CETI10TA74 PO; CLOP75TA PO; DOCU-109 PO; INSU100I13 SQ; INSU100V SQ; LISI40TA6 PO; MELA3TAB4 PO; METO-239 PO; NYST60PO TP; PANT40TA6 PO; SERT-269 PO; SIMV20TA18 PO; TEMA7.5C PO; TORS20TA2 PO; VITAMIN D PO
--- NOTE | 2021-03-13 16:42 | PHYS DOC ---
Past History Past Medical History: Diabetes, High Cholesterol, Hypertension, Sciatica Additional Past Medical Histor: SVT (CHANTEL LONGORIA MD) Past Surgical History: Hysterectomy, Knee Replacement, Oophorectomy Additional Past Surgical Histo: Lumbar spine (CHANTEL LONGORIA MD) Smoking: Quit Greater Than 1 Year Alcohol Use: None Drug Use: None (CHANTEL LONGORIA MD) General Adult EDM: Chief Complaint: DEHYDRATION HPI: HPI: Patient is a 70-year-old female brought in by EMS. Patient's family called EMS because they felt she was dehydrated. Patient denies any complaints did not want to come to the hospital but family insisted. Family did not come to the hospital with patient so history is limited to EMS report as patient has a prior stroke and is only able to answer yes or no questions. Patient states she has no complaints and has no pain but does feel like she could be a little bit dehydrated. Responds yes that she has been eating and drinking normally. (CHANTEL LONGORIA MD) Review of Systems: Review of Systems: All other systems within normal limits except for as noted in the HPI (CHANTEL LONGORIA MD) Allergies: Allergies: Allergies Coded Allergies Type Severity Reaction Last Updated Verified Penicillins Allergy Unknown 03/13/21 Yes Sulfa (Sulfonamide Antibiotics) Allergy Unknown 03/13/21 Yes (CHANTEL LONGORIA MD) Physical Exam: PE: Constitutional: Well developed, well nourished, no acute distress, non-toxic appearance. [] HENT: Normocephalic, atraumatic, bilateral external ears normal, nose normal. [] Eyes: PERRLA, conjunctiva normal, no discharge. [] Neck: No rigidity, supple, no stridor. [] Cardiovascular: Regular rate and rhythm, brisk cap refill [] Lungs & Thorax: Non labored symmetric respirations, no tachypnea or respiratory distress [] Abdomen: Soft, nondistended. Skin: Warm, dry, no erythema, no rash. [] Back: Unremarkable Extremities: No deformities, range of motion grossly intact, no lower extremity edema [] Neurologic: Alert and oriented X 3, right-sided upper and lower extremity deficits, no slurred speech. Psychologic: Affect normal, judgement normal, mood normal. [] (CHANTEL LONGORIA MD) Current Patient Data: Vital Signs: Vital Signs Date Time Temp Pulse Resp B/P (MAP) Pulse Ox O2 Delivery O2 Flow Rate FiO2 03/13/21 16:33 62 13 164/58 (93) 97 Room Air 03/13/21 15:56 98.0 (CHANTEL LONGORIA MD) EKG: EKG: Irregular rhythm, normal axis, no isolation depression, heart rate 70 bpm [] (CHANTEL LONGORIA MD) Radiology/Procedures: Radiology/Procedures: [] (CHANTEL LONGORIA MD) Heart Score: C/O Chest Pain: N/A Risk Factors: Risk Factors: DM, Current or recent (<one month) smoker, HTN, HLP, family history of CAD, obesity. Risk Scores: Score 0 - 3: 2.5% MACE over next 6 weeks - Discharge Home Score 4 - 6: 20.3% MACE over next 6 weeks - Admit for Clinical Observation Score 7 - 10: 72.7% MACE over next 6 weeks - Early Invasive Strategies (CHANTEL LONGORIA MD) Course & Med Decision Making: Course & Med Decision Making Pending labs at shift change, getting 500 ml of NS (CHANTEL LONGORIA MD) Course & Med Decision Making Patient care handed off to me at checkout pending work-up. Patient with dementia and concern for safety at home plus an elevation in creatinine of 40% over the last measurement as well as not able to tolerate p.o. and findings of uncomplicated diverticulitis on CT. Patient started on antibiotics, IV fluid resuscitation and admitted to [facility] after discussing patient with Dr. Vela. (ART CRUZ MD) Dragon Disclaimer: Dragon Disclaimer: This electronic medical record was generated, in whole or in part, using a voice recognition dictation system. (CHANTEL LONGORIA MD) Departure Departure: Referrals: DELLA JARRETT MD (PCP) CHANTEL LONGORIA MD Mar 13, 2021 16:42 ART CRUZ MD Mar 13, 2021 20:03
[2021-03-13 17:35] LABS: BASO # 0.1 x10^3/uL (0.0-0.2); BASO % 1 % (0-3); EOS # 0.1 x10^3/uL (0.0-0.7); EOS % 1 % (0-3); HEMOGLOBIN 10.7 g/dL (12.0-15.5); LYMPH # 1.7 x10^3/uL (1.0-4.8); LYMPH % 11 % (24-48); MEAN CORPUSCULAR HEMOGLOBIN 26 pg (25-35); MEAN CORPUSCULAR HGB CONC 32 g/dL (31-37); MEAN CORPUSCULAR VOLUME 81 fL (79-100); MONO # 1.1 x10^3/uL (0.0-1.1); MONO % 7 % (0-9); NEUT # 12.7 x10^3uL (1.8-7.7); NEUT % 81 % (31-73); PLATELET COUNT 268 x10^3/uL (140-400); RED BLOOD COUNT 4.09 x10^6/uL (3.50-5.40); RED CELL DISTRIBUTION WIDTH 17.7 % (11.5-14.5); WHITE BLOOD COUNT 15.7 x10^3/uL (4.0-11.0)
[2021-03-13 17:42] LABS: CREATININE 1.6 mg/dL (0.6-1.0); GFR 31.8; POTASSIUM 4.3 mmol/L (3.5-5.1)
[2021-03-13] MEDS ORDERED: IV NORMAL SALINE 500ML 500 ML IV ONE (17:45)
[2021-03-13 17:54] LABS: ALBUMIN 3.5 g/dL (3.4-5.0); ALBUMIN/GLOBULIN RATIO 0.7 (1.0-1.7); TOTAL BILIRUBIN 0.9 mg/dL (0.2-1.0); TOTAL PROTEIN 8.5 g/dL (6.4-8.2)
[2021-03-13 17:55] LABS: MAGNESIUM 2.4 mg/dL (1.8-2.4)
[2021-03-13 18:19] LABS: % EOS 1 % (0-5); % LYMPHS 21 % (24-48); % MONOS 6 % (0-10); % SEGS 72 % (35-66); PLATELET CLUMP PRESENT; PLT ESTIMATE INCREASED (ADEQUATE)
[2021-03-13 18:20] LABS: MICROCYTOSIS SLIGHT; TOXIC GRANULATION MOD
--- NOTE | 2021-03-13 19:01 | RAD ---
AP chest. HISTORY: Abdominal pain AP view was taken of the chest. Lungs are clear. Heart is normal in size. There is no effusion. IMPRESSION: 1. No acute chest disease. Electronically signed by: Mega Engle MD (03/13/2021 6:58 PM) [facility]
--- NOTE | 2021-03-13 19:14 | RAD ---
Exam: CT of abdomen and pelvis without contrast INDICATION: Right-sided abdominal pain TECHNIQUE: Sequential axial images through the abdomen and pelvis obtained without IV contrast. Sagit srinivasan and coronal reformatted images were reconstructed from the axial data and reviewed. Exposure: One or more of the following in the visualized dose reduction techniques were utilized for this examination: 1. Automated exposure control 2. Adjustment of the MA and/or KV according to patient size 3. Use of iterative of reconstructive technique Comparisons: 03/04/2020 FINDINGS: Heart size is normal. No pericardial effusion. Visualized lung bases are clear. Evaluation of solid organs limited secondary to noncontrast technique. Liver, spleen, pancreas, and gallbladder are unremarkable. There is a left adrenal nodule which measu res 3.5 x 4.4 cm. No perinephric inflammation or hydronephrosis. No renal or ureteral calculi are identified. Bladder is partially distended and not well evaluated. Uterus is absent. No abnormal adnexal mass. There is wall thickening and fat stranding surrounding the sigmoid colon. Extensive diverticulosis is noted. The remainder of the large and small bowel are unremarkable. Appendix is nonidentified. No fr ee intra-abdominal air or fluid. No obstruction. Abdominal aorta has a normal course and caliber. No enlarged abdominal lymph nodes are identified. No suspicious osseous lesions or acute fractures. IMPRESSION: 1. Findings likely representing colitis at the sigmoid colon, may be acute diverticulitis. No eviden ce for perforation or adjacent abscess. Colonoscopy posttreatment to ensure no underlying neoplasm is recommended. 2. A left adrenal nodule measuring up to 4.4 cm. This is included characterized on this study. Furth er evaluation with nonemergent/outpatient adrenal protocol CT or MRI is recommended. Electronically signed by: Janeth Muse MD (03/13/2021 7:11 PM) [facility]
[2021-03-13] MEDS ORDERED: CIPROFLOXACIN 400MG PREMIX 200 ML IV ONE (19:30)
[2021-03-13] MEDS ORDERED: IV RINGERS SOLUTION,LACTATED 1,000 ML IV ONE (19:30)
[2021-03-13 19:53] LABS: BACTERIA,URINE FEW /HPF (0-FEW); BILIRUBIN,URINE NEG (NEG); CLARITY,URINE CLEAR; COLOR,URINE YELLOW; GLUCOSE,URINE NEG (NEG); NITRITE,URINE NEG (NEG); RBC,URINE 0 /HPF (0-2); SQUAMOUS EPITHELIAL CELL,UR OCC /LPF; UROBILINOGEN,URINE 0.2 mg/dL (0.2 mg/dL)
[2021-03-13 19:54] LABS: AMORPHOUS SEDIMENT,UR PRESENT /HPF; HYALINE CASTS, URINE OCC /HPF
[2021-03-13] MEDS ORDERED: IV DEXTROSE 5% - 0.9 % NACL 1,000 ML IV ONE (20:00)
[2021-03-13] MEDS ORDERED: diphenhydrAMINE 50 MG/ML VIAL IVP ONE (20:15)
[2021-03-13] MEDS ORDERED: KETOROLAC 15 MG/ML VIAL. IVP ONE (20:30)
[2021-03-13] MEDS ORDERED: MORPHINE SULFATE 2 MG/ML DISP.SYRIN. IV ONE (20:30)
--- NOTE | 2021-03-13 22:09 | NUR ---
The patient, MAXIME POLLOCK, 70 y/o, F admitted by KYLEIGH MANZANO MD, was given written information regarding hospital policies, unit procedures and contact persons. Valuables were checked and logged. Will continue to monitor.
[2021-03-13 22:25] VITALS: BP 121/41
[2021-03-14 04:30] VITALS: BP 111/52
--- NOTE | 2021-03-14 06:30 | NUR ---
Pt slept well throughout the night. Pt denies pain. Pt has expressive aphasia from history of stroke. Pt primarily only answers yes or no to questions, occasionally able to speak 3-4 word sentences to communicate needs. Pt incontinent of bladder, changed pt this am. pt tolerated well and assists with turns. Oriented pt to plan of care, pt stated yes in return. Status unchanged throughout the night.
[2021-03-14 08:04] VITALS: BP 132/55
--- NOTE | 2021-03-14 09:15 | HP ---
ADMIT DATE: 03/13/2021 ATTENDING PHYSICIAN: Dr. Vela. CHIEF COMPLAINT: Obtundation. HISTORY OF PRESENT ILLNESS: The patient is a 70-year-old female admitted through the ED. Family brought her in. She has had a previous stroke. She has had significant aphasia. Her baseline is able to answer questions with brief yes or no answers. She says that she has been drinking adequately, but the family thought she was dehydrated. The workup in the ED showed evidence of diverticulitis. She was started on intravenous antibiotics. Clinically, she did not look too dehydrated. She cannot give much answers. I am trying to contact the family. PAST MEDICAL HISTORY: Significant for type 2 diabetes, hyperlipidemia, old stroke, expressive aphasia and sciatica. PAST SURGICAL HISTORY: Includes hysterectomy, knee replacement, oophorectomy. CURRENT MEDICATIONS: Reviewed. She was on Eliquis 2.5 mg b.i.d., aspirin, baclofen, cetirizine, Plavix, docusate, regular Lantus insulin, lisinopril, melatonin, metoprolol, nystatin, Protonix, Zoloft, torsemide and Demadex. ALLERGIES: SHE HAS ALLERGIES TO PENICILLIN AND SULFA DRUGS. EXACT REACTION IS UNCLEAR. FAMILY HISTORY: Unobtainable. Smoking history, previous smoker. REVIEW OF SYSTEMS: Unobtainable. PHYSICAL EXAMINATION: GENERAL: When I saw her, this is an elderly, chronically ill-appearing female. INITIAL VITAL SIGNS: Showed a temperature of 98.5 degrees Fahrenheit, blood pressure 132/55 mmHg, oxygen saturation 97% on room air. HEENT: Head is without trauma. Pupils are reactive. Sclerae nonicteric. Oropharynx clear. NECK: Supple. No bruits. LUNGS: Shallow respirations. CARDIOVASCULAR: Regular heart tones. No gallop. ABDOMEN: Soft. Minimal guarding in the left lower quadrant. No rebound tenderness. EXTREMITIES: Without edema. NEUROLOGIC: Bedridden, expressive aphasia. PERTINENT LABORATORY STUDIES: Creatinine is 1.6 mg percent. Nonfasting blood sugar 112. Cardiac enzymes negative for coronary ischemia. Hemoglobin is 10.7 grams, white count 15,700. ASSESSMENT: 1. This 70-year-old female has acute diverticulitis. 2. Mild dehydration. 3. Old cerebrovascular accident with residual deficits. 4. Generalized debilitation. 5. Type 2 diabetes. 6. Essential hypertension. PLAN: 1. Admit to the inpatient. 2. Antibiotics have been ordered. 3. I shall hold off her diuretics. 4. Diet as tolerated. 5. I should call the son to ascertain her code status. ELIZABETH DR: Gracie TID: [id number] CC: DELLA JARRETT MD
[2021-03-14 11:27] VITALS: BP 148/72
[2021-03-14] MEDS: PANTOPRAZOLE 40 MG TABLET. PO SCH (12:23)
[2021-03-14] MEDS: APIXABAN 2.5 MG TABLET PO SCH ×2 (12:24→20:11)
[2021-03-14] MEDS: SERTRALINE 100 MG TABLET. PO SCH (12:24)
[2021-03-14] MEDS: LISINOPRIL 20 MG TABLET PO SCH (12:24)
[2021-03-14] MEDS: METOPROLOL SUCC 24HR ER 25 MG TAB.ER.24H. PO SCH (12:25)
[2021-03-14] MEDS: IV NORMAL SALINE 1,000ML 1,000 ML IV SCH ×2 (12:25→20:12)
[2021-03-14] MEDS: CLOPIDOGREL BISULFATE 75 MG TABLET PO SCH (12:25)
[2021-03-14] MEDS: INSULIN LISPRO 300 UNITS/3 ML VIAL. SQ SCH ×2 (13:32→17:08)
[2021-03-14 15:09] VITALS: BP 121/66
[2021-03-14 19:23] VITALS: BP 119/63
[2021-03-14] MEDS: SIMVASTATIN 20 MG TABLET PO SCH (20:12)
[2021-03-14] MEDS: INSULIN GLARGINE SYRINGE. SQ SCH (20:24)
[2021-03-14 22:42] VITALS: BP 132/54
[2021-03-15 02:48] VITALS: BP 128/63
--- NOTE | 2021-03-15 03:41 | NUR ---
Awake and restless all night until approx 0230, at present sleeping soundly with no apparent distress; VSS; telemetry shows afib with rate in the 70's, no ectopy noted; oriented x3 with responses limited due to expressive aphasia, able to make needs known; no c/o pain thus far; incontinent of urine, briefs changed and lila care provided prn; requires max assist with ADL's; no needs identified at this time.
--- NOTE | 2021-03-15 04:37 | NUR ---
Able to sleep only for 90 minutes before waking again; states generalized "uncomfortable", denies pain; unable to repostition herself or move any extremity except minimal movement of left hand, requires max assist x1-2 to assist/reposition; extra pillows provided for comfort.
[2021-03-15] MEDS: SERTRALINE 100 MG TABLET. PO SCH (09:58)
[2021-03-15] MEDS: LISINOPRIL 20 MG TABLET PO SCH (09:58)
[2021-03-15] MEDS: PANTOPRAZOLE 40 MG TABLET. PO SCH (09:59)
[2021-03-15] MEDS: METOPROLOL SUCC 24HR ER 25 MG TAB.ER.24H. PO SCH (10:00)
[2021-03-15] MEDS: CLOPIDOGREL BISULFATE 75 MG TABLET PO SCH (10:00)
[2021-03-15] MEDS: INSULIN LISPRO 300 UNITS/3 ML VIAL. SQ SCH ×3 (10:01→17:24)
[2021-03-15] MEDS: APIXABAN 2.5 MG TABLET PO SCH ×2 (10:03→20:18)
[2021-03-15 12:00] VITALS: BP 162/69
[2021-03-15] MEDS: IV NORMAL SALINE 1,000ML 1,000 ML IV SCH (12:17)
[2021-03-15 16:33] VITALS: BP 164/75
--- NOTE | 2021-03-15 17:18 | PN ---
DATE: 03/15/2021 ATTENDING PHYSICIAN: Dr. Vela. 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 She is alert, awake. Her responses are still monosyllabic due to her stroke. She has significant expressive aphasia. OBJECTIVE FINDINGS: VITAL SIGNS: Blood pressure this morning is 128/63 mmHg, she is afebrile, pulse is 70 and regular, oxygen saturation 96% on room air. Microbiology: Preliminary report 08/25 blood cultures came back positive for gram-negative rods. Whether this is a significant pathogen depends on the ID and sensitivity, that is pending. HEENT: Head is without trauma. Pupils are reactive. Sclerae are nonicteric. Oropharynx is clear. NECK: Supple, no bruits. LUNGS: Good breath sounds. CARDIOVASCULAR: Regular heart tones. ABDOMEN: Soft. Minimal guarding in the left lower quadrant. EXTREMITIES: Without edema. NEUROLOGIC FINDING: She is bedridden and nonambulatory. She has significant expressive aphasia. She also has right-sided generalized weakness. ASSESSMENT: 1. A 70-year-old female with acute diverticulitis. 2. Mild dehydration, rehydrated. 3. Old cerebrovascular accident with expressive aphasia and right-sided hemiparesis. 4. Generalized debilitation. 5. Type 2 diabetes. 6. Essential hypertension. 7. Positive blood cultures. ID and sensitivities pending. PLAN: 1. Continue IV antibiotics as ordered. 2. Advance diet as tolerated. 3. Diuretics have been held. 4. I had a long discussion with the son and his . They want a higher level of care. I will ask [facility] to visit with them tomorrow morning regarding placement. ALICIA DR: Gracie TID: [id number] CC: DELLA JARRETT MD
[2021-03-15 19:50] VITALS: BP 147/53
[2021-03-15] MEDS: SIMVASTATIN 20 MG TABLET PO SCH (20:18)
[2021-03-15] MEDS: INSULIN GLARGINE SYRINGE. SQ SCH (20:18)
[2021-03-15 22:47] VITALS: BP 158/74
[2021-03-16] MEDS: IV NORMAL SALINE 1,000ML 1,000 ML IV SCH (00:37)
[2021-03-16 05:55] VITALS: BP 168/80
[2021-03-16] MEDS: METOPROLOL SUCC 24HR ER 25 MG TAB.ER.24H. PO SCH (08:07)
[2021-03-16] MEDS: APIXABAN 2.5 MG TABLET PO SCH ×2 (08:08→21:05)
[2021-03-16] MEDS: SERTRALINE 100 MG TABLET. PO SCH (08:08)
[2021-03-16] MEDS: CLOPIDOGREL BISULFATE 75 MG TABLET PO SCH (08:08)
[2021-03-16] MEDS: LISINOPRIL 20 MG TABLET PO SCH (08:08)
[2021-03-16] MEDS: PANTOPRAZOLE 40 MG TABLET. PO SCH (08:09)
[2021-03-16] MEDS: INSULIN LISPRO 300 UNITS/3 ML VIAL. SQ SCH ×3 (08:12→16:30)
[2021-03-16] MEDS ORDERED: ONDANSETRON PF 4 MG/2 ML VIAL. IVP PRN (11:00)
[2021-03-16 11:12] VITALS: BP 156/83
--- NOTE | 2021-03-16 12:06 | EKG ---
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
[2021-03-16 13:07] VITALS: BP 162/80
[2021-03-16 15:58] VITALS: BP 151/76
--- NOTE | 2021-03-16 18:25 | NUR ---
NURSING NOTE PT WAITING FOR FAMILY TO DECIDE WHERE TO PLACE PT. PT READY TO GO HOME. PT IN A PLEASANT MOOD TODAY AND AWAKE MOST OF THE DAY. DR. NATACHA Sun'Earnestine FLUIDS AND INCIDENT RESPONSE SPECIALIST. ZOFRAN WAS ORDERED DUE TO PT HAVING SOME NAUSEA AND VOMITING EARLIER IN THE DAY. PT/OT CAME TO SEE PT TODAY. PT DEEMED A MAX ASSIST. TO CONTINUE WITH ROCEPHIN AND FLAGYL.
[2021-03-16 19:19] VITALS: BP 107/65
[2021-03-16] MEDS: SIMVASTATIN 20 MG TABLET PO SCH (21:05)
[2021-03-16] MEDS: LACTOBACILLUS RHAMNOSUS GG 1 CAPSULE. PO SCH (21:05)
[2021-03-16] MEDS: INSULIN GLARGINE SYRINGE. SQ SCH (21:06)
--- NOTE | 2021-03-17 03:55 | PN ---
DATE: 03/16/2021 ATTENDING PHYSICIAN: Dr. Vela. SUBJECTIVE: She is alert, bright. Her responses are monosyllabic. OBJECTIVE FINDINGS: VITAL SIGNS: Blood pressure this morning is 160/80, pulse 73 and regular, temperature 99.1 degrees Fahrenheit, oxygen saturation 93% on room air. HEENT: Head is without trauma. Pupils are reactive. Sclerae nonicteric. The oropharynx is clear. NECK: Supple, no bruits identified. LUNGS: Good breath sounds. CARDIOVASCULAR: Regular heart tones. ABDOMEN: Soft. EXTREMITIES: Without edema. NEUROLOGIC: She has right-sided hemiparesis along with expressive aphasia. CT scan showed evidence of acute diverticulitis. They recommended colonoscopy to look for underlying neoplasm. Given her status and her DNR status, I talked to the family about this ____ put that on hold at this time regarding the GI workup. ASSESSMENT: 1. A 70-year-old female with acute diverticulitis. 2. Old cerebrovascular accident with significant residual deficits, hemiparesis, and expressive aphasia. 3. Generalized debilitation. PLAN: 1. Continue antibiotics for another day. 2. Advance diet as tolerated. 3. Pain control. 4. We are working on placement per family at an extended care facility. ELTON/LYNN/LEIF DR: ELTON/ayesha TID: [id number] CC: DELLA JARRETT MD
[2021-03-17 05:02] VITALS: BP 171/87
--- NOTE | 2021-03-17 06:00 | NUR ---
Pt A&Ox3, Pt with expressive aphasia from hx of CVA. Pt is able to answers yes/no questions easily and occasionally does speak 3-4 word sentences. Pt ate HS snack with set up help only. Pt incontinent of bladder, purewick in place with 600ml out this shift of urine. Pt with small smear incont BM this AM. Pt TQ2. Pt is waiting for family to decent placement
[2021-03-17] MEDS: PANTOPRAZOLE 40 MG TABLET. PO SCH (08:00)
[2021-03-17] MEDS: INSULIN LISPRO 300 UNITS/3 ML VIAL. SQ SCH ×2 (08:00→11:30)
[2021-03-17] MEDS: APIXABAN 2.5 MG TABLET PO SCH (08:01)
[2021-03-17] MEDS: SERTRALINE 100 MG TABLET. PO SCH (08:01)
[2021-03-17] MEDS: CLOPIDOGREL BISULFATE 75 MG TABLET PO SCH (08:01)
[2021-03-17] MEDS: LACTOBACILLUS RHAMNOSUS GG 1 CAPSULE. PO SCH (08:01)
[2021-03-17] MEDS: LISINOPRIL 20 MG TABLET PO SCH (08:01)
[2021-03-17] MEDS: METOPROLOL SUCC 24HR ER 25 MG TAB.ER.24H. PO SCH (08:02)
[2021-03-17 11:58] VITALS: BP 156/80
--- NOTE | 2021-03-17 12:41 | DS ---
DATE OF DISCHARGE: 03/17/2021 ATTENDING PHYSICIAN: Dr. Vela. FINAL DISCHARGE DIAGNOSES: 1. A 70-year-old female with acute diverticulitis, improved. 2. Old cerebrovascular accident with significant right-sided hemiparesis and expressive aphasia. 3. Generalized debilitation. 4. Paroxysmal atrial fibrillation. 5. Chronic anticoagulation. 6. Type 2 diabetes, insulin-dependent. 7. Essential hypertension. HISTORY AND PHYSICAL: The patient is a 70-year-old female who was admitted to the ED with vague symptoms of chest pain, discomfort and evidence of acute diverticulitis. She has chronic issues and has a significant neurologic deficit from her previous stroke. PHYSICAL EXAMINATION: Please see my dictated note. PERTINENT LABORATORY AND X-RAY STUDIES: Admission hemoglobin was 10.7 g/dL, white count 15,700. Electrolytes showed a normal sodium, potassium, creatinine 1.6 mg percent, nonfasting blood sugar 110. Follow up sugars were drawn in the hospital and they were well controlled in the low 100s. CT of the abdomen and pelvis showed colitis of the sigmoid colon suggestive of acute diverticulitis. Colonoscopy was recommended, but given her DNR status and chronic anticoagulation, this will be decided as an outpatient for followup. COURSE IN THE HOSPITAL: The patient was admitted. She was treated with 4 full days of intravenous antibiotics. She did well. Symptoms improved. She was back to her baseline. Her responses were monosyllabic, but she was quite alert and comfortable without any acute distress. I spoke with the son and significant other. They were requesting placement in a senior living; however, they do not have power of trade mark attorney at this time. They are working on that. In the meantime, on the fifth hospital day, she was discharged home with the following meds, Eliquis 2.5 mg b.i.d., aspirin, baclofen, cetirizine, Plavix, regular insulin, and Lantus, lisinopril, melatonin, metoprolol, nystatin, Protonix, Zoloft, Zocor, Demadex, and vitamin D. I also recommended 7 more days of cephalexin 500 mg p.o. t.i.d. until complete. She is a DNR per advanced directive. She was discharged and in stable condition with explicit drug and followup care. ELTON/TANIA DR: Gracie TID: [id number] CC: DELLA JARRETT MD
--- NOTE | 2021-03-17 15:49 | NUR ---
Nursing Note Discharge Pt accompanied by EMS via gurney to pt home. Pt to receive home health at home. Pt in stable condition.
== END 2021-03-17 15:52 | disposition home health service (06) | DRG 392 ==
LOC: ER 15:42 → ICU 19:49 → 1 SOUTH 03-15 07:00
PROVIDERS: ADMIT Hospitalist; ATTEND Hospitalist
DX: K57.92 Diverticulitis of intestine, part unspecified, without perforation or abscess without bleeding (principal); I69.351 Hemiplegia and hemiparesis following cerebral infarction affecting right dominant side; R78.81 Bacteremia; E11.9 Type 2 diabetes mellitus without complications; E78.00 Pure hypercholesterolemia, unspecified; E78.5 Hyperlipidemia, unspecified; E86.0 Dehydration; I10 Essential (primary) hypertension; I48.0 Paroxysmal atrial fibrillation; Z66 Do not resuscitate; Z79.01 Long term (current) use of anticoagulants; Z79.4 Long term (current) use of insulin; Z87.891 Personal history of nicotine dependence; Z90.710 Acquired absence of both cervix and uterus; Z96.659 Presence of unspecified artificial knee joint; Z20.822 Contact with and (suspected) exposure to COVID-19
CPT/HCPCS: 36415; 71045; 74176; 80053; 81001; 82947; 83605; 83735; 83880; 84484; 85007; 85025; 93005; J0696; J0744; J1200; J1815; J1885; J2270; J2405; J3490; J7040; J7042; J7120; U0003; 97530; 99285-25; J7030

== ENCOUNTER 2021-06-06 17:28 | Emergency (ER) | payer MEDICARE, OTHER ==
[~2021-06-06] VITALS: Ht 312.4 cm; Wt 97.0 kg
--- NOTE | 2021-06-06 17:37 | PHYS DOC ---
Past History Past Medical History: Diabetes, High Cholesterol, Hypertension, Sciatica Additional Past Medical Histor: SVT (MARISSA ALBA DO) Past Medical History: Arthritis, CAD, Constipation, COPD, CVA, Dementia, Diverticulitis, Diabetes, High Cholesterol, Hypertension, Stroke, TIA, UTI (TOBY BOSS MD) Past Surgical History: Hysterectomy, Knee Replacement, Oophorectomy Additional Past Surgical Histo: Lumbar spine (MARISSA ALBA DO) Past Surgical History: Hysterectomy, Knee Replacement, Oophorectomy (TOBY BOSS MD) Smoking: Quit Greater Than 1 Year Alcohol Use: None Drug Use: None (MARISSA ALBA DO) Smoking: Cigarettes, Quit Greater Than 1 Year (TOBY BOSS MD) Adult General Chief Complaint Chief Complaint: NEURO SYMPTOMS/DEFICITS HPI HPI Patient is a 70-year-old female presenting via EMS for altered mentation and dysarthria. Last known well was 1300 hrs. today. Patient was at home with numerous family members when spontaneously without any inciting event, trauma, ingestion or other known exposure; patient began having difficulty speaking and was more altered than usual. It is unclear why family waited so long to call EMS for transport but they finally did. On arrival, patient found to be hemodynamically stable with a betho-oz-cimt glucose of 80. She was subsequently transferred to our facility for arrival. On arrival, patient is a poor historian. She cannot give a reliable history. EMS reports that she was recently here at our facility and has numerous comorbid conditions such as prior CVA and insulin-dependent type 2 diabetes. (MARISSA ALBA DO) Review of Systems Review of Systems Unobtainable due to current mentation (MARISSA ALBA DO) Allergies Allergies Allergies Coded Allergies Type Severity Reaction Last Updated Verified Penicillins Allergy Unknown 03/13/21 Yes Sulfa (Sulfonamide Antibiotics) Allergy Unknown 03/13/21 Yes (MARISSA ALBA DO) Physical Exam Physical Exam Constitutional: Well developed, well nourished, no acute distress, non-toxic appearance. HENT: Normocephalic, atraumatic, bilateral external ears normal, oropharynx moist, no oral exudates, nose normal. Eyes: PERRLA, EOMI, conjunctiva normal, no discharge. Neck: Normal range of motion, no tenderness, supple, no stridor. Cardiovascular: Heart rate regular, sinus rhythm, no murmurs rubs or gallops Lungs & Thorax: Bilateral breath sounds clear to auscultation Abdomen: Bowel sounds normal, soft, no tenderness, no masses, no pulsatile masses. Nonsurgical abdomen, no peritoneal signs Skin: Warm, dry, no erythema, no rash. Back: No tenderness, no CVA tenderness. Extremities: No tenderness, no cyanosis, no clubbing, ROM intact, no edema. Neurologic: Alert and oriented X 3, grossly normal motor & sensory function, no focal deficits noted. Psychologic: Affect normal, judgement normal, mood normal. (MARISSA ALBA DO) EKG EKG [] (MARISSA ALBA DO) EKG My interpretation EKG shows a sinus rhythm at 85 bpm/ could be accelerated junctional. Baseline tremor negates true finding of A. fib does appear to have a mild mottled P waves in leads II. And right leads. Does have findings of contour abnormality with anterior septal area and ST abnormalities. And a ventricular strain. Would consider this an abnormal EKG however does not appear to be acute STEMI with contralateral changes. Time of this EKG is 1743. My interpretation of 2nd EKG show sinus rhythm with leftward axis. Has had some interval changes suggesting subendocardial infarct. Elevated ST segments in aVR , III, V1 V2 with contralateral depression lead I, II -abnormal EKG. Consistent with infarct time as his EKG is 2049 hrs., (TOBY BOSS MD) Radiology/Procedures Radiology/Procedures [] (MARISSA ALBA DO) Radiology/[place] [address] IMAGING REPORT Signed PATIENT: MAXIME POLLOCK ACCOUNT: [id number] : 1950 LOCATION: ER AGE: 70 SEX: F EXAM STATUS: REG ER ORD. PHYSICIAN: MARISSA ALBA DO REASON: CODE STROKE, DYSARTHRIA PROCEDURE: CT CODE STROKE HEAD WO Exam: CT head INDICATION: Code stroke TECHNIQUE: Sequential axial images through the head were obtained without the administration of IV contrast. Exposure: One or more of the following in the visualized dose reduction techniques were utilized for this examination: 1. Automated exposure control 2. Adjustment of the MA and/or KV according to patient size 3. Use of iterative of reconstructive technique Comparisons: None FINDINGS: No focal parenchymal lesion or hemorrhage is identified. There is no midline shift or sulcal effacement. Chronic infarct at the left parietal region. Patchy evidence in the periventricular white matter, similar prior exam. No acute vascular territory infarction is identified. Juárez-white distinction is preserved. The ventricular system is within normal limits without compression hydrocephalus. The basal cisterns are well maintained. The visualized portions of the paranasal sinuses and mastoid air cells are well- pneumatized. No acute fractures. IMPRESSION: No acute intracranial abnormality. [address] [address] IMAGING REPORT Signed PATIENT: MAXIME POLLOCK ACCOUNT: [id number] : 1950 LOCATION: ER AGE: 70 SEX: F EXAM STATUS: REG ER ORD. PHYSICIAN: MARISSA ALBA DO REASON: CODE STROKE PROCEDURE: PORTABLE CHEST 1V Exam: Chest one view INDICATION: Stroke TECHNIQUE: Frontal view of the chest Comparisons: 03/13/2021 FINDINGS: The cardiomediastinal silhouette and pulmonary vessels are within normal limits. The lung and pleural spaces are clear. IMPRESSION: No acute cardiopulmonary process. Electronically signed by: Janeth Gillis MD (06/06/2021 6:02 PM) [facility] DICTATED AND SIGNED BY: JANETH GILLIS MD DATE: 06/06/21 180 CC: MARISSA ALBA DO; DELLA JARRETT MD ~MTH0 0 FOR INTERNAL CODING PURPOSES Critical result: Findings discussed with Dr. Troy at 06/06/2021 5:47 PM. RESULT CODE: (C) Electronically signed by: Janeth Gillis MD (06/06/2021 5:50 PM) [facility] (TOBY BOSS MD) Heart Score C/O Chest Pain: N/A Risk Factors: Risk Factors: DM, Current or recent (<one month) smoker, HTN, HLP, family history of CAD, obesity. Risk Scores: Risk Factors: DM, Current or recent (<one month) smoker, HTN, HLP, family history of CAD, obesity. (MARISSA ALBA DO) C/O Chest Pain: N/A (TOBY BOSS MD) Course & Med Decision Making Course & Med Decision Making Code stroke initiated immediately on arrival given expressive aphasia symptoms with last known normal time of 1300 hrs. Iooty-pm-cgzi glucose checked while on CT table and unremarkable. I received time critical CT head interpretation by radiologist as chronic findings on CT head. At this time in care, my shift was ending. Comprehensive signout given to off coming physician. I detailed entirety of ER work-up ordered so far and history received. Please defer to Dr. Boss's documentation regarding future care of patient while in ER setting (MARISSA ALBA DO) Course & Med Decision Making See Dr. Alba chart for details prior shift change. Son at bedside, states at baseline 1300. Has chronic issues of expressive ap hasia, dysarthria, right-sided weakness from first CVA. States she no longer follows with Dr. Jarrett, but also but sees Dr. Dinh now. No recent changes in meds. No recent changes in specific ill contacts. No history of trauma or falls,. Has no history of fever or chills. Has not had COVID vaccination, son advised they will not allow her to get it.. Patient's primary changes have been increased problems with expressive aphasia and dysarthria.. Discussed presentation, current available testing with Dr. Reyes. Advised admit or transfer. Continue Plavix and Aspirin for now. Dr. Vela contacted declines admit, advised needed transfer. Dr. Senior- advised to contact cardiology, if they said admit to call him back. Requested a second trop. before he would consider admit. [facility] she at maximum treatment at this time. Declined transfer at this time. [address] Bartlett at 2009 [address]. Agree to follow up if admitted at [facility]- not unreasonable to admit to tele. for repeat tropes and EKG.. No beds now available at [facility].- [facility] Discussed presentation with transfer center. Pt.accepted in transfer to [facility]= Dr. Tolbert 2345 Hrs. Impression: 1. Altered Mental Status. 2. History of expressive aphasia and dysarthria 3. Prior TIAs and CVAs-no acute interval change on CT today 4. Diabetes 5. Dementia 6. Chronic right side weakness-prior CVA 7. Chronic positional tremor primarily on right side 8. Fever 9. UTI 10.Elevate Trop. 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 Leukocytosis at 13.4 13. Anemia hemoglobin 10.2 14 Hematuria (TOBY BOSS MD) Dragon Disclaimer Dragon Disclaimer This electronic medical record was generated, in whole or in part, using a voice recognition dictation system. (MARISSA ALBA DO) Departure Departure: Impression: Primary Impression: AMS (altered mental status) Disposition: 02 [facility]ORT TERM [facility] (general acute hospital) Admitting Physician: Other (dr senior) (MARISSA ALBA DO) Condition: STABLE Referrals: DELLA JARRETT MD (PCP) MARISSA ALBA DO Jun 06, 2021 17:37 TOBY BOSS MD Jun 06, 2021 18:14
--- NOTE | 2021-06-06 17:52 | EKG ---
[address] [address] Test Date: 2021-06-06 Test Time: 17:43:47 Pat Name: MAXIME POLLOCK Department: Room: Gender: F Ad Operations Specialist: LOYD : 1950 Requested By: MARISSA ALBA Order Number: [id number] Reading MD: Huang Humphreys MD Measurements Intervals [place] Rate: 85 P: WI: QRS: 14 QRSD: 80 T: 80 QT: 356 QTc: 424 Interpretive Statements SINUS TACHYCARDIA NON-SPECIFIC ST/T CHANGES Electronically Signed On 06-08-2021 10:32:49 CDT by Huang Humphreys MD
--- NOTE | 2021-06-06 17:52 | RAD ---
Exam: CT head INDICATION: Code stroke TECHNIQUE: Sequential axial images through the head were obtained without the administration of IV co ntrast. Exposure: One or more of the following in the visualized dose reduction techniques were utilized for this examination: 1. Automated exposure control 2. Adjustment of the MA and/or KV according to patient size 3. Use of iterative of reconstructive technique Comparisons: None FINDINGS: No focal parenchymal lesion or hemorrhage is identified. There is no midline shift or sulcal effaceme nt. Chronic infarct at the left parietal region. Patchy evidence in the periventricular white matter, sim ilar prior exam. No acute vascular territory infarction is identified. Juárez-white distinction is pres erved. The ventricular system is within normal limits without compression hydrocephalus. The basal cisterns are well maintained. The visualized portions of the paranasal sinuses and mastoid air cells are well-pneumatized. No acute fractures. IMPRESSION: No acute intracranial abnormality. FOR INTERNAL CODING PURPOSES Critical result: Findings discussed with Dr. Troy at 06/06/2021 5:47 PM. RESULT CODE: (C) Electronically signed by: Janeth Muse MD (06/06/2021 5:50 PM) [facility]
--- NOTE | 2021-06-06 18:05 | RAD ---
Exam: Chest one view INDICATION: Stroke TECHNIQUE: Frontal view of the chest Comparisons: 03/13/2021 FINDINGS: The cardiomediastinal silhouette and pulmonary vessels are within normal limits. The lung and pleural spaces are clear. IMPRESSION: No acute cardiopulmonary process. Electronically signed by: Janeth Muse MD (06/06/2021 6:02 PM) [facility]
[2021-06-06 18:43] LABS: BASO % 0 % (0-3); EOS % 0 % (0-3); HEMATOCRIT 31.9 % (36.0-47.0); HEMOGLOBIN 10.2 g/dL (12.0-15.5); LYMPH # 0.5 x10^3/uL (1.0-4.8); LYMPH % 4 % (24-48); MEAN CORPUSCULAR HEMOGLOBIN 26 pg (25-35); MEAN CORPUSCULAR HGB CONC 32 g/dL (31-37); MEAN CORPUSCULAR VOLUME 82 fL (79-100); MONO % 8 % (0-9); NEUT # 11.8 x10^3uL (1.8-7.7); NEUT % 88 % (31-73); PLATELET COUNT 213 x10^3/uL (140-400); RED BLOOD COUNT 3.91 x10^6/uL (3.50-5.40); RED CELL DISTRIBUTION WIDTH 17.5 % (11.5-14.5); WHITE BLOOD COUNT 13.4 x10^3/uL (4.0-11.0)
[2021-06-06] MEDS ORDERED: ASPIRIN RECTAL 300 MG SUPP. PR ONE (18:45)
[2021-06-06 18:57] LABS: CREATININE 1.1 mg/dL (0.6-1.0); POTASSIUM 4.2 mmol/L (3.5-5.1)
[2021-06-06] MEDS ORDERED: IV NORMAL SALINE 50ML 50 ML ONE (19:54)
[2021-06-06] MEDS ORDERED: cefTRIAXone SODIUM 1 GM VIAL ONE (19:54)
[2021-06-06 19:58] LABS: SQUAMOUS EPITHELIAL CELL,UR MOD /LPF
[2021-06-06 19:59] LABS: BACTERIA,URINE MOD /HPF (0-FEW); WBC,URINE 20-40 /HPF (0-4)
[2021-06-06 20:01] LABS: BILIRUBIN,URINE NEG (NEG); CLARITY,URINE CLOUDY; COLOR,URINE YELLOW; GLUCOSE,URINE NEG (NEG); NITRITE,URINE POS (NEG); UROBILINOGEN,URINE 0.2 mg/dL (0.2 mg/dL)
[2021-06-06] MEDS ORDERED: ONDANSETRON PF 4 MG/2 ML VIAL. IVP ONE (20:15)
[2021-06-06] MEDS ORDERED: MORPHINE SULFATE 10 MG/ML SYRINGE. SQ ONE (20:30)
[2021-06-06] MEDS ORDERED: NITROGLYCERIN OINT 1 GM PACKET. TP ONE (20:45)
[2021-06-06 23:45] VITALS: BP 135/64
--- NOTE | 2021-06-07 00:29 | EKG ---
[address] [address] Test Date: 2021-06-06 Test Time: 20:49:10 Pat Name: MAXIME POLLOCK Department: Room: Gender: F Clinical Statistics Manager: EDDIE : 1950 Requested By: TOBY ROE Order Number: [id number] Reading MD: Huang Humphreys MD Measurements Intervals [place] Rate: 98 P: -58 WV: 98 QRS: -4 QRSD: 82 T: 141 QT: 344 QTc: 441 Interpretive Statements SINUS RHYTHM LATERAL ISCHEMIA Electronically Signed On 06-08-2021 10:28:30 CDT by Huang Humphreys MD
== END 2021-06-07 00:56 | disposition short-term general hospital (02) ==
LOC: ER 17:28
DX: R41.82 Altered mental status, unspecified (principal); N39.0 Urinary tract infection, site not specified; D72.829 Elevated white blood cell count, unspecified; E78.5 Hyperlipidemia, unspecified; J44.9 Chronic obstructive pulmonary disease, unspecified; Z20.822 Contact with and (suspected) exposure to COVID-19; Z88.0 Allergy status to penicillin; Z88.2 Allergy status to sulfonamides; Z90.710 Acquired absence of both cervix and uterus; Z87.891 Personal history of nicotine dependence
CPT/HCPCS: 36415; 70450; 71045; 80048; 81001; 82140; 83605; 84484; 85025; 85610; 85730; 87040; 87086; 93005; 96365; 96372; 96375; 99285; C9803; J0696; J2270; J2405; U0003; 87077; 87186

== ENCOUNTER 2021-12-01 16:28 | Emergency (ER) | payer MEDICARE, OTHER ==
[~2021-12-01] VITALS: Ht 167.6 cm; Wt 98.7 kg
[2021-12-01] MEDS ORDERED: IV NORMAL SALINE 1,000ML 1,000 ML IV SCH (16:30)
--- NOTE | 2021-12-01 16:34 | PHYS DOC ---
Past History Past Medical History: Arthritis, CAD, Constipation, COPD, CVA, Dementia, Diverticulitis, Diabetes, High Cholesterol, Hypertension, Stroke, TIA, UTI Additional Past Medical Histor: SVT Past Medical History Limited secondary to altered mental status, prior strokes, and history of dementia Past Surgical History: Hysterectomy, Knee Replacement, Oophorectomy Additional Past Surgical Histo: Lumbar spine Past Surgical History Limited secondary to altered mental status, prior strokes, and history of dementia Smoking: Cigarettes, Quit Greater Than 1 Year Alcohol Use: None Drug Use: None Social History Limited secondary to altered mental status, prior strokes, and history of dementia General Adult EDM: Chief Complaint: NEURO SYMPTOMS/DEFICITS HPI: HPI: 70-year-old female with past medical history of dementia and prior CVA with c hronic right-sided residual deficit presents via EMS with report of altered mental status. Per EMS patient's last known well at approximately 0200 this morning. EMS reports right sided flaccidity at baseline from prior strokes. Per EMS patient was seen by physical therapy this afternoon who noticed patient's mental status was significantly different than normal. Patient normally able to converse without difficulty and A&O x 2. Physical therapy called 911 with concern for possible stroke. Patient is currently treated with Eliquis and Plavix. Denies known trauma. History of present illness limited secondary to altered mental status, history of CVA, and dementia Review of Systems: Review of Systems: Review of systems limited secondary to altered mental status, prior CVA, and dementia Current Medications: Current Meds: Current Medications Medications (Trade) Dose Ordered Sig/[place] Start Time Stop Time Status Last Admin Dose Admin Sodium Chloride 1,000 ml @ 1,000 mls/hr Q1H 12/01/21 16:30 12/01/21 17:29 UNV Allergies: Allergies: Allergies Coded Allergies Type Severity Reaction Last Updated Verified Penicillins Allergy Unknown 03/13/21 Yes Sulfa (Sulfonamide Antibiotics) Allergy Unknown 03/13/21 Yes Physical Exam: PE: Constitutional: Elderly, obese, obtunded HENT: Normocephalic, atraumatic Eyes: PERRL, EOMI, conjunctiva normal, no discharge Neck: Normal range of motion, supple Lungs & Thorax: No respiratory distress, equal chest rise and fall Abdomen: Soft, no tenderness Skin: Warm, dry, no erythema, no rash Extremities: No deformity, 1+ edema, contractions to left leg Neurologic: GCS 12 (eye 3, verbal 4, motor 5), obtunded, arousable to voice, will intermittently follow commands, will withdraw to painful stimuli to all extremities but improved movement to left side in comparison to right Psychologic: Limited, judgment abnormal EKG: EKG: @ NSR at 69bpm, NO ST elevation, QRS 88ms, QT/QTc 504/542ms Radiology/Procedures: Radiology/Procedures: PROCEDURE: CT CODE STROKE HEAD WO CT STROKE HEAD W/O History: Altered mental status. History of CVA. Chronic right-sided weakness. Comparison: None. Technique: Noncontrast CT imaging was performed of the head. Findings: There is redemonstrated left parietal region of encephalomalacia from old infarct with new 1.4 x 0.9 cm area of hyperdense intraparenchymal hemorrhage within the encephalomalacic region. No herniation or hydrocephalus. No evidence of acute territorial infarction. Atherosclerotic calcifications of the intracranial internal carotid arteries. Imaged orbits are unremarkable. Imaged paranasal sinuses and mastoid air cells are clear. The scalp and calvarium are unremarkable. Impression: 1. New intraparenchymal hemorrhage measuring 1.4 x 0.9 cm within left parietal area of encephalomalacia from old infarct. Findings discussed with NEGRA TORREZ DO at 12/01/2021 4:38 PM. FOR INTERNAL CODING PURPOSES RESULT CODE: (C) ----- Exposure: One or more of the following individualized dose reduction techniques were utilized for this examination: 1. Automated exposure control 2. Adjustment of the mA and/or kV according to patient size 3. Use of iterative reconstruction technique. Electronically signed by: Dae Saab MD (12/01/2021 4:41 PM) [id number] PROCEDURE: PORTABLE CHEST 1V AP chest. HISTORY: Altered mental status AP view was taken of the chest. Comparison is made with a study from May 2021. Patient's taken a poor inspiration. Heart within normal limits in size. There is no pleural effusion. There are no acute infiltrates. IMPRESSION: 1. No acute infiltrates. Electronically signed by: Mega Engle MD (12/01/2021 5:31 PM) [facility] Heart Score: C/O Chest Pain: N/A Course & Med Decision Making: Course & Med Decision Making Pertinent Labs and Imaging studies reviewed. (See chart for details) Patient presents via EMS as code stroke. History of remote CVAs with right- sided flaccidity at baseline. Patient typically alert and oriented with normal speech. Patient last known well at 0200. Patient sent immediately to CT scanner with findings of intracranial hemorrhage. Patient does use Eliquis and Plavix. NIHSS >20. Labs obtained and posted to chart. EKG stable. CXR stable. Patient requiring transfer to higher level facility with neurosurgery capability for admission and further evaluation and possible treatment. Discussed case with Dunia ELLIS with Dr. Lima (neurosurgery) at [facility] who is in agreement with consultation. Discussed with Dr. Sutton (hospitalist) who is in agreement with admission at [facility]. Discussed findings and plan with patient's family, who acknowledge understanding and agreement. Dragon Disclaimer: Dragon Disclaimer: This electronic medical record was generated, in whole or in part, using a voice recognition dictation system. Departure Departure: Impression: Primary Impression: Hemorrhagic stroke Disposition: 02 SHORT TERM HOSPITAL Condition: GUARDED Referrals: DELLA JARRETT MD (PCP) NIHSS - ED NIH Stroke Scale: NIH Stroke Scale Response (Comments) Value Level of Consciousness: 2 Requires stimulation 2 LOC Questions: 2 Answers neither correct 2 LOC Commands: 1 Performs one task 1 Best Gaze: 0 Normal 0 Visual: 0 No visual loss 0 Facial Palsy: 0 Normal, symmetrical 0 Motor - Left Arm 3 Limb falls 3 Motor - Right Arm 3 Limb falls 3 Motor - Left Leg 3 Limb falls 3 Motor: Right Leg 3 Limb falls 3 Sensory: 0 No loss 0 Best Language: 2 Severe aphasia 2 Dysathria: 2 Severe 2 Extinction and Inattention: 0 Normal 0 Total 21 Critical Care Time Critical care time was 30 minutes which includes time at bedside, spent in discussion of patient's care with specialists and/or family members, with interpretation of laboratory and/or radiological studies and is exclusive of procedures. NEGRA TORREZ DO Dec 01, 2021 16:34
--- NOTE | 2021-12-01 16:44 | RAD ---
CT STROKE HEAD W/O History: Altered mental status. History of CVA. Chronic right-sided weakness. Comparison: None. Technique: Noncontrast CT imaging was performed of the head. Findings: There is redemonstrated left parietal region of encephalomalacia from old infarct with new 1.4 x 0.9 cm area of hyperdense intraparenchymal hemorrhage within the encephalomalacic region. No herniation o r hydrocephalus. No evidence of acute territorial infarction. Atherosclerotic calcifications of the i ntracranial internal carotid arteries. Imaged orbits are unremarkable. Imaged paranasal sinuses and mastoid air cells are clear. The scalp a nd calvarium are unremarkable. Impression: 1. New intraparenchymal hemorrhage measuring 1.4 x 0.9 cm within left parietal area of encephalomala rita from old infarct. Findings discussed with NEGRA TORREZ DO at 12/01/2021 4:38 PM. FOR INTERNAL CODING PURPOSES RESULT CODE: (C) ----- Exposure: One or more of the following individualized dose reduction techniques were utilized for thi s examination: 1. Automated exposure control 2. Adjustment of the mA and/or kV according to patient size 3. Use of iterative reconstruction technique. Electronically signed by: Dae Saab MD (12/01/2021 4:41 PM) [id number]
[2021-12-01] MEDS ORDERED: CONTRAST GIVEN. MC PRN (16:45)
[2021-12-01] MEDS ORDERED: IOHEXOL 350 MG/ML 100 ML VIAL. IV ONE (16:45)
[2021-12-01 17:02] LABS: BASO # 0.1 x10^3/uL (0.0-0.2); BASO % 1 % (0-3); EOS # 0.2 x10^3/uL (0.0-0.7); EOS % 2 % (0-3); HEMATOCRIT 36.3 % (36.0-47.0); HEMOGLOBIN 12.1 g/dL (12.0-15.5); LYMPH # 2.2 x10^3/uL (1.0-4.8); LYMPH % 20 % (24-48); MEAN CORPUSCULAR HEMOGLOBIN 29 pg (25-35); MEAN CORPUSCULAR HGB CONC 33 g/dL (31-37); MEAN CORPUSCULAR VOLUME 85 fL (79-100); MONO # 0.8 x10^3/uL (0.0-1.1); MONO % 7 % (0-9); NEUT # 7.6 x10^3uL (1.8-7.7); NEUT % 69 % (31-73); PLATELET COUNT 202 x10^3/uL (140-400); RED BLOOD COUNT 4.25 x10^6/uL (3.50-5.40); RED CELL DISTRIBUTION WIDTH 16.5 % (11.5-14.5); WHITE BLOOD COUNT 10.9 x10^3/uL (4.0-11.0)
[2021-12-01 17:22] LABS: CALCIUM 9.5 mg/dL (8.5-10.1); CREATININE 1.3 mg/dL (0.6-1.0); GFR 40.4; POTASSIUM 3.9 mmol/L (3.5-5.1)
[2021-12-01 17:26] LABS: ALBUMIN 3.6 g/dL (3.4-5.0); ALBUMIN/GLOBULIN RATIO 0.9 (1.0-1.7); TOTAL BILIRUBIN 0.7 mg/dL (0.2-1.0); TOTAL PROTEIN 7.5 g/dL (6.4-8.2)
--- NOTE | 2021-12-01 17:34 | RAD ---
AP chest. HISTORY: Altered mental status AP view was taken of the chest. Comparison is made with a study from May 2021. Patient's taken a poor inspiration. Heart within normal limits in size. There is no pleural effusion. There are no acut e infiltrates. IMPRESSION: 1. No acute infiltrates. Electronically signed by: Mega Engle MD (12/01/2021 5:31 PM) [facility]
[2021-12-01 18:04] VITALS: BP 151/75
[2021-12-01 18:23] LABS: BACTERIA,URINE MANY /HPF (0-FEW); CLARITY,URINE CLOUDY; COLOR,URINE YELLOW; GLUCOSE,URINE NEG (NEG); HYALINE CASTS, URINE FEW /HPF; NITRITE,URINE NEG (NEG); RBC,URINE 0 /HPF (0-2); SQUAMOUS EPITHELIAL CELL,UR FEW /LPF; UROBILINOGEN,URINE 0.2 mg/dL (0.2 mg/dL); WBC,URINE >40 /HPF (0-4)
--- NOTE | 2021-12-02 06:34 | EKG ---
[address] [address] Test Date: 2021-12-01 Test Time: 17:46:17 Pat Name: MAXIME POLLOCK Department: Room: Gender: F Share Holder: : 1950 Requested By: NEGRA TORREZ Order Number: [id number] Reading MD: Eliezer Soliman Measurements Intervals [place] Rate: 69 P: 9 PA: 188 QRS: 2 QRSD: 88 T: 114 QT: 504 QTc: 542 Interpretive Statements SINUS RHYTHM ST & T ABNORMALITY, CONSIDER HIGH LATERAL ISCHEMIA OR LEFT VENTRICULAR STRAIN Electronically Signed On 12-04-2021 13:39:47 CDT by Eliezer Soliman
== END 2021-12-01 18:30 | disposition short-term general hospital (02) ==
LOC: ER 16:28
DX: I62.9 Nontraumatic intracranial hemorrhage, unspecified (principal); M19.90 Unspecified osteoarthritis, unspecified site; I25.10 Atherosclerotic heart disease of native coronary artery without angina pectoris; J44.9 Chronic obstructive pulmonary disease, unspecified; F03.90 Unspecified dementia, unspecified severity, without behavioral disturbance, psychotic disturbance, mood disturbance, and anxiety; E11.9 Type 2 diabetes mellitus without complications; E78.00 Pure hypercholesterolemia, unspecified; I10 Essential (primary) hypertension; Z20.822 Contact with and (suspected) exposure to COVID-19; Z86.73 Personal history of transient ischemic attack (TIA), and cerebral infarction without residual deficits; Z87.440 Personal history of urinary (tract) infections; Z87.891 Personal history of nicotine dependence; Z88.0 Allergy status to penicillin; Z88.2 Allergy status to sulfonamides
CPT/HCPCS: 36415; 51702; 70450; 71045; 80053; 81001; 82140; 82553; 82947; 83605; 83735; 84484; 85025; 85610; 85730; 87077; 87086; 87186; 87426; 93005; 96360; 99291; C9803; J7030; U0003